=== PATIENT | male | born 1945 | race American Indian/Alaskan Native ===

== ENCOUNTER 2017-03-19 19:58 | Inpatient (IN) | payer MEDICARE, OTHER ==
--- NOTE | 2017-03-19 20:21 | C.PDOC ---
History Of Present Illness Patient sent to ED by their PCP for abnormal potassium levels. Denies fever, nausea, vomiting, palpitations, chest pain or SOB. Time Seen by Provider: 03/19/17 20:20 Chief Complaint (Nursing): Abnormal Labs History Per: Patient History/Exam Limitations: no limitations Onset/Duration Of Symptoms: Hrs Current Symptoms Are (Timing): Still Present Severity: None Pain Scale Rating Of: 0 Recent travel outside of the [place]: No Past Medical History Reviewed: Historical Data, Nursing Documentation, Vital Signs Vital Signs: Last Vital Signs Temp 98.7 F 03/19/17 20:04 Pulse 82 03/19/17 20:04 Resp 20 03/19/17 20:04 BP 95/56 L 03/19/17 20:04 Pulse Ox 100 03/19/17 20:55 - Medical History PMH: Alzheimer's Disease, Benign Prostatic Hyperplasia, Dementia, Gall Bladder Disease, HTN, Parkinson's Disease, Schizophrenia Surgical History: No Surg Hx Family History: States: No Known Family Hx - Social History Hx Alcohol Use: Yes Hx Substance Use: No - Immunization History Hx Tetanus Toxoid Vaccination: No Hx Influenza Vaccination: No Hx Pneumococcal Vaccination: No Review Of Systems Constitutional: Negative for: Fever, Chills Cardiovascular: Negative for: Chest Pain, Palpitations Respiratory: Negative for: Shortness of Breath Gastrointestinal: Negative for: Nausea, Vomiting, Diarrhea Genitourinary: Negative for: Dysuria Musculoskeletal: Negative for: Back Pain Skin: Negative for: Rash Neurological: Negative for: Weakness Psych: Negative for: Anxiety Physical Exam - Physical Exam Appears: Non-toxic, No Acute Distress, Other (Awake and alert) Skin: Warm, Dry Head: Normacephalic Eye(s): bilateral: Normal Inspection Oral Mucosa: Moist Neck: Supple Chest: Symmetrical, No Tenderness Cardiovascular: Rhythm Regular Respiratory: No Rales, No Rhonchi, No Wheezing Gastrointestinal/Abdominal: Soft, No Tenderness Back: Normal Inspection Extremity: Normal ROM Extremity: Bilateral: Atraumatic Pulses: Left Dorsalis Pedis: Normal, Right Dorsalis Pedis: Normal Neurological/Psych: Oriented x3 Gait: Steady ED Course And Treatment - Laboratory Results Result Diagrams: 03/19/17 20:38 03/19/17 20:38 ECG: Interpreted By Me, Viewed By Me ECG Rhythm: Sinus Rhythm (7676), ST/T Changes O2 Sat by Pulse Oximetry: 100 (Room air) Pulse Ox Interpretation: Normal Progress Note: Ordered EKG, blood work, and urinalysis. Disposition Discussed With Dr.: Naren Kennedy Comment: accepted the pt on his service and took over the care at 9:29PM Doctor Will See Patient In The: Hospital Counseled Patient/Family Regarding: Studies Performed, Diagnosis - Disposition Disposition: HOSPITALIZED Disposition Time: 20:21 Condition: GUARDED Forms: [facility] (Greek) - POA Present On Arrival: None - Clinical Impression Clinical Impression: Electrolyte imbalance, Hyperkalemia, Renal insufficiency - Scribe Statement The provider has reviewed the documentation as recorded by the Jazmynibe Fabio Kumar All medical record entries made by the Scribe were at my direction and personally dictated by me. I have reviewed the chart and agree that the record accurately reflects my personal performance of the history, physical exam, medical decision making, and the department course for this patient. I have also personally directed, reviewed, and agree with the discharge instructions and disposition. Decision To Admit - Pt Status Changed To: Hospital Disposition Of: Inpatient - Admit Certification Admit to Inpatient:: After my assessment, the patient will require hospitalization for at least two midnights. This is because of the severity of symptoms shown, intensity of services needed, and/or the medical risk in this patient being treated as an outpatient. - InPatient: Physician Admission Certification: I certify that this patient requires 2 or more midnights of care for the following reason:: After my assessment, the patient will require hospitalization for at least two midnights. This is because of the severity of symptoms shown, intensity of services needed, and/or the medical risk in this patient being treated as an outpatient. - . Bed Request Type: Telemetry Admitting Physician: Naren Kennedy Patient Diagnosis: Electrolyte imbalance, Hyperkalemia, Renal insufficiency
[2017-03-19 20:41] LABS: BASO % 0.5 % (0.0-2.0); EOS # 0.3 K/uL (0.0-0.7); EOS % 4.7 % (0.0-4.0); HEMOGLOBIN 10.1 g/dL (12.0-18.0); LYMPH # 1.3 K/uL (1.0-4.3); LYMPH % 21.9 % (20.0-40.0); MEAN CELL VOLUME 103.2 fL (80.0-94.0); MEAN CORPUSCULAR HEMOGLOBIN 33.5 pg (27.0-31.0); MEAN CORPUSCULAR HGB CONC 32.4 g/dL (33.0-37.0); MEAN PLATELET VOLUME 9.6 fL (7.2-11.7); MONO # 0.7 K/uL (0.0-0.8); MONO % 12.1 % (0.0-10.0); NEUT # 3.7 K/uL (1.8-7.0); NEUT % 60.8 % (50.0-75.0); NRBC % 0.1 % (0.0-2.0); RBC 3.02 Mil/uL (4.40-5.90); RED CELL DISTRIBUTION WIDTH 17.3 % (11.5-14.5)
[2017-03-19 20:50] LABS: PROTHROMBIN TIME 11.3 SECONDS (9.7-12.2)
[2017-03-19 21:10] LABS: ALB/GLOB RATIO 1.1 (1.0-2.1); ALBUMIN 3.5 g/dL (3.5-5.0); CALCIUM 8.5 mg/dl (8.6-10.4)
[2017-03-19] MEDS ORDERED: Calcium Gluconate 4.65 MEQ in Dextrose 5% In Water 100 ML IVPB STA (21:12)
[2017-03-19] MEDS ORDERED: Sod Polystyrene Sulf 15 gm/60 ml Susp PO STA (21:12)
[2017-03-19] MEDS ORDERED: Sodium Chloride 0.9% 1,000 ML IV ONE (21:13)
[2017-03-19] MEDS ORDERED: (Novolin R) Insulin Human Regular 100 units/ml vial SC ONE (21:14)
[2017-03-19] MEDS ORDERED: Dextrose 50% SYRINGE Inj (50 ml) IV STA (21:14)
[2017-03-19] MEDS: Albuterol-Ipratrop 3 mg / 0.5 (3 ml) UD IH SCH ×3 (21:15→21:45)
--- NOTE | 2017-03-20 09:02 | CP.PCM.CON ---
History of Present Illness - History of Present Illness History of Present Illness: Renal consult for PAUL, hyperkalemia, metabolic acidosis 72 yo AA male, known to Dr. Bonds in office, history of schizophrenia, HTN, hypertensive renal disease, HCV, presents with abnormal labs. Pt is a poor historian, has history of dementia.Has been on KENISHA-I. Describes some diarrhea. Denies change in u/o, appetite, sob. Receiving ivf. Baseline creatinine of 2.9. Lives in a correction. No fever or chills. Review of Systems - Review of Systems Systems not reviewed;Unavailable: Dementia Past Patient History - Infectious Disease Hx of Infectious Diseases: None - Past Medical History & Family History Past Medical History?: Yes - Past Social History Smoking Status: Light Smoker < 10 Cigarettes Daily - CARDIAC Hx Hypertension: Yes - NEUROLOGICAL Hx Alzheimer's Disease: Yes Hx Dementia: Yes Hx Parkinson's Disease: Yes - HEENT Hx HEENT Problems: No - RENAL Hx Chronic Kidney Disease: Yes Other/Comment: Renal insufficiency - ENDOCRINE/METABOLIC Hx Endocrine Disorders: No - HEMATOLOGICAL/ONCOLOGICAL Hx Blood Disorders: Yes Hx Hepatitis C: Yes - INTEGUMENTARY Hx Dermatological Problems: No - MUSCULOSKELETAL/RHEUMATOLOGICAL Hx Musculoskeletal Disorders: No Hx Falls: Yes - GASTROINTESTINAL Hx Gall Bladder Disease: Yes - GENITOURINARY/GYNECOLOGICAL Hx Genitourinary Disorders: No - PSYCHIATRIC Hx Schizophrenia: Yes Hx Substance Use: No - SURGICAL HISTORY Other/Comment: Bowel Resction - ANESTHESIA Hx Anesthesia: Yes Hx Anesthesia Reactions: No Meds Allergies/Adverse Reactions: Allergies Allergy/AdvReac Type Severity Reaction Status Date / Time No Known Allergies Allergy Verified 03/19/17 20:13 - Medications Medications: Current Medications Enoxaparin Sodium (Lovenox) 30 mg SC DAILY [facility] Sodium Bicarbonate 75 meq/ (Sodium Chloride) 1,075 mls @ 100 mls/hr IV .[id number] [place] Sodium Bicarbonate (Sodium Bicarbonate Tab) 1,300 mg PO TID [facility] Physical Exam - Constitutional Appears: Non-toxic, Chronically Ill - Head Exam Head Exam: ATRAUMATIC - Eye Exam Eye Exam: EOMI, Normal appearance - ENT Exam ENT Exam: Mucous Membranes Moist - Neck Exam Neck exam: Positive for: Full Rom. Negative for: Lymphadenopathy - Respiratory Exam Respiratory Exam: Clear to Auscultation Bilateral. absent: Accessory Muscle Use - Cardiovascular Exam Cardiovascular Exam: REGULAR RHYTHM. absent: Rubs - Extremities Exam Extremities exam: Negative for: pedal edema - Neurological Exam Neurological exam: Alert, Oriented x3 Additional comments: poor historian and poor insight - Psychiatric Exam Psychiatric exam: Flat Affect Results - Vital Signs Recent Vital Signs: Last Vital Signs Temp 98.2 F 03/20/17 07:00 Pulse 62 03/20/17 08:23 Resp 20 03/20/17 07:00 BP 100/58 L 03/20/17 07:00 Pulse Ox 100 03/20/17 07:00 - Labs Result Diagrams: 03/19/17 20:38 03/19/17 20:38 Labs: Laboratory Results - last 24 hr 03/19/17 03/19/17 03/19/17 20:38 20:38 20:38 WBC 6.0 RBC 3.02 L Hgb 10.1 L Hct 31.2 L MCV 103.2 H MCH 33.5 H MCHC 32.4 L RDW 17.3 H Plt Count 171 MPV 9.6 Neut % (Auto) 60.8 Lymph % (Auto) 21.9 [place] % (Auto) 12.1 H Eos % (Auto) 4.7 H Baso % (Auto) 0.5 Neut # 3.7 Lymph # 1.3 [place] # 0.7 Eos # 0.3 Baso # 0.0 PT 11.3 INR 1.0 APTT 27 Sodium 140 Potassium 6.1 H Chloride 125 H Carbon Dioxide 9 L* Anion Gap 13 BUN 49 H Creatinine 4.2 H Est GFR ( Amer) 17 Est GFR (Non-Af Amer) 14 Random Glucose 90 Calcium 8.5 L Total Bilirubin 0.5 AST 38 ALT 36 Alkaline Phosphatase 88 Total Protein 6.8 Albumin 3.5 Globulin 3.2 Albumin/Globulin Ratio 1.1 Assessment & Plan - Assessment and Plan (Free Text) Assessment: paul on ckd stage 4 nonanion gap metabolic acidosis hyperkalemia due to decreased renal mass and kenisha-i plan ivf with hco3 management of hyperkalemia renal diet renal us follow i/o hepatitis serologies continue outpatient medicines check cpk check urine anion gap
[2017-03-20] MEDS: QUEtiapine 200 mg XR Tab PO SCH (10:20)
[2017-03-20] MEDS: Enoxaparin 30 mg Syringe SC SCH (10:20)
[2017-03-20 11:28] LABS: SQUAMOUS EPITHIAL 1 /hpf (0-5); URINE BACTERIA RARE (<OCC); URINE BILIRUBIN NEGATIVE (NEGATIVE); URINE BLOOD 1+ (NEGATIVE); URINE CLARITY Clear (Clear); URINE COLOR Yellow (YELLOW); URINE GLUCOSE (UA) 1+ mg/dL (Normal); URINE LEUKOCYTE ESTERASE NEG Leu/uL (Negative); URINE NITRATE NEGATIVE (NEGATIVE); URINE PROTEIN NEGATIVE (NEGATIVE); URINE UROBILINOGEN NORMAL mg/dL (0.2-1.0)
[2017-03-20 12:03] LABS: ALB/GLOB RATIO 1.1 (1.0-2.1); ALBUMIN 2.9 g/dL (3.5-5.0)
--- NOTE | 2017-03-20 14:45 | US ---
PROCEDURE: Ultrasound of the Kidneys HISTORY: aguilar COMPARISON: None available. TECHNIQUE: Sonogram of the kidneys. FINDINGS: RIGHT KIDNEY: Measures: 11.1 x 5.5 x 4.2 cm. Lobulated renal contours. 0.7 x 0.9 x 0.7 cm midpole renal cyst. No obstructing calculus or hydronephrosis identified. LEFT KIDNEY: Measures: 11.8 x 6.2 x 5.8 cm. Lobulated renal contours. 2.8 x 3.0 x 2.7 cm septated upper pole renal cyst. No obstructing calculus or hydronephrosis identified. OTHER FINDINGS: The distention of the urinary bladder limits evaluation. IMPRESSION: Lobulated renal contours bilaterally. 3.0 cm septated cyst within the left upper pole kidney. 0.9 cm midpole right renal cyst. No obstructing calculus or hydronephrosis identified.
--- NOTE | 2017-03-20 20:00 | CP.PCM.HP ---
Past Patient History - Infectious Disease Hx of Infectious Diseases: None - Past Medical History & Family History Past Medical History?: Yes - Past Social History Smoking Status: Light Smoker < 10 Cigarettes Daily - CARDIAC Hx Hypertension: Yes - NEUROLOGICAL Hx Alzheimer's Disease: Yes Hx Dementia: Yes Hx Parkinson's Disease: Yes - HEENT Hx HEENT Problems: No - RENAL Hx Chronic Kidney Disease: Yes Other/Comment: Renal insufficiency - ENDOCRINE/METABOLIC Hx Endocrine Disorders: No - HEMATOLOGICAL/ONCOLOGICAL Hx Blood Disorders: Yes Hx Hepatitis C: Yes - INTEGUMENTARY Hx Dermatological Problems: No - MUSCULOSKELETAL/RHEUMATOLOGICAL Hx Musculoskeletal Disorders: No Hx Falls: Yes - GASTROINTESTINAL Hx Gall Bladder Disease: Yes - GENITOURINARY/GYNECOLOGICAL Hx Genitourinary Disorders: No - PSYCHIATRIC Hx Schizophrenia: Yes Hx Substance Use: No - SURGICAL HISTORY Other/Comment: Bowel Resction - ANESTHESIA Hx Anesthesia: Yes Hx Anesthesia Reactions: No Meds Allergies/Adverse Reactions: Allergies Allergy/AdvReac Type Severity Reaction Status Date / Time No Known Allergies Allergy Verified 03/19/17 20:13 Physical Exam - Constitutional Appears: Well - Head Exam Head Exam: ATRAUMATIC, NORMAL INSPECTION, NORMOCEPHALIC - Eye Exam Eye Exam: EOMI, Normal appearance, PERRL Pupil Exam: NORMAL ACCOMODATION, PERRL - ENT Exam ENT Exam: Mucous Membranes Moist, Normal Exam - Neck Exam Neck exam: Positive for: Normal Inspection - Respiratory Exam Respiratory Exam: Decreased Breath Sounds - Cardiovascular Exam Cardiovascular Exam: REGULAR RHYTHM, +S1, +S2 - GI/Abdominal Exam GI & Abdominal Exam: Diminished Bowel Sounds, Soft - Rectal Exam Rectal Exam: Deferred Results - Vital Signs Recent Vital Signs: Last Vital Signs Temp 97.7 F 03/20/17 15:25 Pulse 61 03/20/17 16:00 Resp 20 03/20/17 15:25 BP 94/51 L 03/20/17 15:25 Pulse Ox 100 03/20/17 15:25 - Labs Result Diagrams: 03/19/17 20:38 03/20/17 11:25 Labs: Laboratory Results - last 24 hr 03/19/17 03/19/17 03/19/17 20:38 20:38 20:38 WBC 6.0 RBC 3.02 L Hgb 10.1 L Hct 31.2 L MCV 103.2 H MCH 33.5 H MCHC 32.4 L RDW 17.3 H Plt Count 171 MPV 9.6 Neut % (Auto) 60.8 Lymph % (Auto) 21.9 [place] % (Auto) 12.1 H Eos % (Auto) 4.7 H Baso % (Auto) 0.5 Neut # 3.7 Lymph # 1.3 [place] # 0.7 Eos # 0.3 Baso # 0.0 PT 11.3 INR 1.0 APTT 27 Sodium 140 Potassium 6.1 H Chloride 125 H Carbon Dioxide 9 L* Anion Gap 13 BUN 49 H Creatinine 4.2 H Est GFR ( Amer) 17 Est GFR (Non-Af Amer) 14 Random Glucose 90 Calcium 8.5 L Total Bilirubin 0.5 AST 38 ALT 36 Alkaline Phosphatase 88 Total Protein 6.8 Albumin 3.5 Globulin 3.2 Albumin/Globulin Ratio 1.1 Urine Color Urine Clarity Urine pH Ur Specific [place] Urine Protein Urine Glucose (UA) Urine Ketones Urine Blood Urine Nitrate Urine Bilirubin Urine Urobilinogen Ur Leukocyte Esterase Urine WBC (Auto) Urine RBC (Auto) Ur Squamous Epith Cells Urine Bacteria Hyaline Casts 03/20/17 03/20/17 11:19 11:25 WBC RBC Hgb Hct MCV MCH MCHC RDW Plt Count MPV Neut % (Auto) Lymph % (Auto) [place] % (Auto) Eos % (Auto) Baso % (Auto) Neut # Lymph # [place] # Eos # Baso # PT INR APTT Sodium 138 Potassium 5.3 H Chloride 122 H Carbon Dioxide 13 L Anion Gap 9 L BUN 36 H Creatinine 3.3 H Est GFR ( Amer) 22 Est GFR (Non-Af Amer) 19 Random Glucose 108 Calcium 8.0 L Total Bilirubin 0.2 AST 36 ALT 49 Alkaline Phosphatase 63 Total Protein 5.6 L Albumin 2.9 L Globulin 2.7 Albumin/Globulin Ratio 1.1 Urine Color Yellow Urine Clarity Clear Urine pH 5.0 Ur Specific [place] 1.011 Urine Protein Negative Urine Glucose (UA) 1+ H Urine Ketones Negative Urine Blood 1+ H Urine Nitrate Negative Urine Bilirubin Negative Urine Urobilinogen Normal Ur Leukocyte Esterase Neg Urine WBC (Auto) 1 Urine RBC (Auto) 8 H Ur Squamous Epith Cells 1 Urine Bacteria Rare Hyaline Casts 6-10 H
[2017-03-21 06:37] LABS: BASO % 0.7 % (0.0-2.0); EOS # 0.2 K/uL (0.0-0.7); EOS % 5.2 % (0.0-4.0); HEMOGLOBIN 8.9 g/dL (12.0-18.0); LYMPH # 0.9 K/uL (1.0-4.3); LYMPH % 24.4 % (20.0-40.0); MEAN CELL VOLUME 100.3 fL (80.0-94.0); MEAN CORPUSCULAR HGB CONC 32.8 g/dL (33.0-37.0); MEAN PLATELET VOLUME 9.7 fL (7.2-11.7); MONO # 0.5 K/uL (0.0-0.8); MONO % 14.5 % (0.0-10.0); NEUT # 2.1 K/uL (1.8-7.0); NEUT % 55.2 % (50.0-75.0); NRBC % 0.2 % (0.0-2.0); RBC 2.71 Mil/uL (4.40-5.90); RED CELL DISTRIBUTION WIDTH 16.2 % (11.5-14.5); WHITE BLOOD COUNT 3.7 K/uL (4.8-10.8)
[2017-03-21 08:05] LABS: ALBUMIN 2.8 g/dL (3.5-5.0); CALCIUM 7.7 mg/dl (8.6-10.4)
[2017-03-21] MEDS: QUEtiapine 200 mg XR Tab PO SCH (09:14)
[2017-03-21] MEDS: Enoxaparin 30 mg Syringe SC SCH (09:15)
[2017-03-21] MEDS ORDERED: Influenza Vaccine 60 mcg/0.5 mL SYR (4YR UP) IM ONE (10:00)
[2017-03-21] MEDS ORDERED: Pneumococcal 23-Valent Vaccine IM ONE (10:00)
--- NOTE | 2017-03-21 10:18 | CP.PCM.PN ---
Subjective - Date & Time of Evaluation Date of Evaluation: 03/21/17 Time of Evaluation: 10:15 - Subjective Subjective: More alert On IV bicarb and oral as well BP improved Creat decreased to 2.9; acidosis being corrected No more SOB. No CPs, HAs, fever, chills, diarrhea No new complaint Objective - Vital Signs/Intake and Output Vital Signs (last 24 hours): Temp Pulse Resp BP Pulse Ox 98.1 F 57 L 20 147/81 100 03/21/17 08:03 03/21/17 08:03 03/21/17 08:03 03/21/17 08:03 03/21/17 08:03 Intake and Output: 03/21/17 03/21/17 06:59 18:59 Intake Total 920 Balance 920 - Medications Medications: Current Medications Clopidogrel Bisulfate (Plavix) 75 mg PO DAILY [facility] Last Admin: 03/21/17 09:13 Dose: 75 mg Enoxaparin Sodium (Lovenox) 30 mg SC DAILY [facility] Last Admin: 03/21/17 09:15 Dose: 30 mg Sodium Bicarbonate 75 meq/ (Sodium Chloride) 1,075 mls @ 100 mls/hr IV .[id number] [facility] Last Admin: 03/21/17 01:10 Dose: 100 mls/hr Quetiapine Fumarate (Seroquel Xr) 200 mg PO DAILY [facility] Last Admin: 03/21/17 09:14 Dose: 200 mg Sodium Bicarbonate (Sodium Bicarbonate Tab) 1,300 mg PO TID [facility] Last Admin: 03/21/17 09:13 Dose: 1,300 mg - Labs Labs: 03/21/17 06:30 03/21/17 06:30 PT 11.3 SECONDS (9.7-12.2) 03/19/17 20:38 INR 1.0 03/19/17 20:38 APTT 27 SECONDS (21-34) 03/19/17 20:38 - Constitutional Appears: Confused, Chronically Ill - Head Exam Head Exam: ATRAUMATIC, NORMAL INSPECTION - Eye Exam Eye Exam: EOMI, Normal appearance - Neck Exam Neck Exam: Normal Inspection. absent: Tenderness - Respiratory Exam Respiratory Exam: Clear to Ausculation Bilateral, NORMAL BREATHING PATTERN - Cardiovascular Exam Cardiovascular Exam: REGULAR RHYTHM, +S1 - GI/Abdominal Exam GI & Abdominal Exam: Soft. absent: Tenderness - Extremities Exam Extremities Exam: Normal Inspection. absent: Tenderness - Neurological Exam Neurological Exam: Alert, CN II-XII Intact - Skin Skin Exam: Warm. absent: Dry Assessment and Plan (1) PAUL (acute kidney injury) Status: Acute (2) Hypotension Status: Acute (3) Hyperkalemia Status: Acute - Assessment and Plan (Free Text) Plan: Continue IV fluids, bicarb Monitor BP follow up chemistries
[2017-03-21] MEDS ORDERED: Sod Polystyrene Sulf 15 gm/60 ml Susp PO ONE ×2 (10:19→22:56)
--- NOTE | 2017-03-21 12:50 | CARD ---
APPROVED REPORT EKG Measurement Heart [id number] <Conclusion> Sinus bradycardia with sinus arrhythmia Normal Electrocardiogram
--- NOTE | 2017-03-21 19:23 | CP.PCM.PN ---
Subjective - Date & Time of Evaluation Date of Evaluation: 03/21/17 Time of Evaluation: 11:40 - Subjective Subjective: clinically same Objective - Vital Signs/Intake and Output Vital Signs (last 24 hours): Temp Pulse Resp BP Pulse Ox 97.7 F 72 20 100/54 L 100 03/21/17 15:40 03/21/17 15:40 03/21/17 15:40 03/21/17 15:40 03/21/17 15:40 Intake and Output: 03/21/17 03/22/17 18:59 06:59 Intake Total 1040 Balance 1040 - Medications Medications: Current Medications Clopidogrel Bisulfate (Plavix) 75 mg PO DAILY [facility] Last Admin: 03/21/17 09:13 Dose: 75 mg Enoxaparin Sodium (Lovenox) 30 mg SC DAILY [facility] Last Admin: 03/21/17 09:15 Dose: 30 mg Sodium Bicarbonate 75 meq/ (Sodium Chloride) 1,075 mls @ 100 mls/hr IV .[id number] [facility] Last Admin: 03/21/17 17:41 Dose: 100 mls/hr Quetiapine Fumarate (Seroquel Xr) 200 mg PO DAILY [facility] Last Admin: 03/21/17 09:14 Dose: 200 mg Sodium Bicarbonate (Sodium Bicarbonate Tab) 1,300 mg PO TID [facility] Last Admin: 03/21/17 17:41 Dose: 1,300 mg - Labs Labs: 03/21/17 06:30 03/21/17 06:30 PT 11.3 SECONDS (9.7-12.2) 03/19/17 20:38 INR 1.0 03/19/17 20:38 APTT 27 SECONDS (21-34) 03/19/17 20:38
[2017-03-22] MEDS ORDERED: Sod Polystyrene Sulf 15 gm/60 ml Susp PO ONE (00:05)
[2017-03-22 08:35] LABS: MEAN CELL VOLUME 98.6 fL (80.0-94.0); MEAN CORPUSCULAR HEMOGLOBIN 32.8 pg (27.0-31.0); MEAN CORPUSCULAR HGB CONC 33.3 g/dL (33.0-37.0); RBC 2.75 Mil/uL (4.40-5.90); RED CELL DISTRIBUTION WIDTH 15.9 % (11.5-14.5); WHITE BLOOD COUNT 4.3 K/uL (4.8-10.8)
[2017-03-22 08:46] LABS: ALB/GLOB RATIO 1.2 (1.0-2.1); ALBUMIN 3.1 g/dL (3.5-5.0); CALCIUM 7.8 mg/dl (8.6-10.4); MAGNESIUM 1.5 mg/dL (1.6-2.3)
[2017-03-22] MEDS: Enoxaparin 30 mg Syringe SC SCH (09:51)
[2017-03-22] MEDS: QUEtiapine 200 mg XR Tab PO SCH (09:52)
--- NOTE | 2017-03-22 13:47 | CP.PCM.PN ---
Subjective - Date & Time of Evaluation Date of Evaluation: 03/22/17 Time of Evaluation: 13:44 - Subjective Subjective: Alert; eating better Remains on IV fluids Creat decreased to 2.6 Acidosis corrected No other complaint Objective - Vital Signs/Intake and Output Vital Signs (last 24 hours): Temp Pulse Resp BP Pulse Ox 98.9 F 73 20 139/81 98 03/22/17 07:00 03/22/17 07:00 03/22/17 07:00 03/22/17 07:00 03/22/17 07:00 Intake and Output: 03/22/17 03/22/17 06:59 18:59 Intake Total 1040 Balance 1040 - Medications Medications: Current Medications Clopidogrel Bisulfate (Plavix) 75 mg PO DAILY [facility] Last Admin: 03/22/17 09:52 Dose: 75 mg Enoxaparin Sodium (Lovenox) 30 mg SC DAILY [facility] Last Admin: 03/22/17 09:51 Dose: 30 mg Magnesium Oxide (Mag-Ox) 400 mg PO DAILY [facility] Quetiapine Fumarate (Seroquel Xr) 200 mg PO DAILY [facility] Last Admin: 03/22/17 09:52 Dose: 200 mg Sodium Bicarbonate (Sodium Bicarbonate Tab) 1,300 mg PO TID [facility] Last Admin: 03/22/17 13:10 Dose: 1,300 mg - Labs Labs: 03/22/17 08:19 03/22/17 08:19 PT 11.3 SECONDS (9.7-12.2) 03/19/17 20:38 INR 1.0 03/19/17 20:38 APTT 27 SECONDS (21-34) 03/19/17 20:38 - Constitutional Appears: No Acute Distress, Chronically Ill - Head Exam Head Exam: ATRAUMATIC, NORMAL INSPECTION - Eye Exam Eye Exam: EOMI, Normal appearance - Neck Exam Neck Exam: Normal Inspection. absent: Tenderness - Respiratory Exam Respiratory Exam: Clear to Ausculation Bilateral, NORMAL BREATHING PATTERN - Cardiovascular Exam Cardiovascular Exam: REGULAR RHYTHM, +S1 - GI/Abdominal Exam GI & Abdominal Exam: Soft. absent: Tenderness - Extremities Exam Extremities Exam: Normal Inspection. absent: Tenderness - Neurological Exam Neurological Exam: Awake, CN II-XII Intact - Skin Skin Exam: Dry, Warm Assessment and Plan (1) PAUL (acute kidney injury) Status: Acute (2) Hypotension Status: Acute (3) Hyperkalemia Status: Resolved - Assessment and Plan (Free Text) Plan: Stop bicarb gtt- continue oral bicarb Replete mag f/u labs Add ESAs
[2017-03-22] MEDS: Magnesium Oxide 400 mg Tab UD PO SCH (14:00)
--- NOTE | 2017-03-22 19:39 | CP.PCM.PN ---
Subjective - Date & Time of Evaluation Date of Evaluation: 03/22/17 Time of Evaluation: 12:00 - Subjective Subjective: clinically same Objective - Vital Signs/Intake and Output Vital Signs (last 24 hours): Temp Pulse Resp BP Pulse Ox 97.5 F L 64 20 88/42 L 98 03/22/17 15:00 03/22/17 15:00 03/22/17 15:00 03/22/17 15:00 03/22/17 15:00 Intake and Output: 03/22/17 03/23/17 18:59 06:59 Intake Total 880 Balance 880 - Medications Medications: Current Medications Clopidogrel Bisulfate (Plavix) 75 mg PO DAILY [facility] Last Admin: 03/22/17 09:52 Dose: 75 mg Enoxaparin Sodium (Lovenox) 30 mg SC DAILY [facility] Last Admin: 03/22/17 09:51 Dose: 30 mg Epoetin Mg (Procrit) 10,000 unit SC [facility] Magnesium Oxide (Mag-Ox) 400 mg PO DAILY [facility] Last Admin: 03/22/17 14:00 Dose: 400 mg Quetiapine Fumarate (Seroquel Xr) 200 mg PO DAILY [facility] Last Admin: 03/22/17 09:52 Dose: 200 mg Sodium Bicarbonate (Sodium Bicarbonate Tab) 1,300 mg PO TID [facility] Last Admin: 03/22/17 18:45 Dose: 1,300 mg - Labs Labs: 03/22/17 08:19 03/22/17 08:19 PT 11.3 SECONDS (9.7-12.2) 03/19/17 20:38 INR 1.0 03/19/17 20:38 APTT 27 SECONDS (21-34) 03/19/17 20:38
[2017-03-23] MEDS: Magnesium Oxide 400 mg Tab UD PO SCH (09:25)
[2017-03-23] MEDS: Enoxaparin 30 mg Syringe SC SCH (09:25)
[2017-03-23] MEDS: QUEtiapine 200 mg XR Tab PO SCH (09:25)
[2017-03-23 09:33] VITALS: O2SAT 98
--- NOTE | 2017-03-23 11:09 | CP.PCM.PN ---
Subjective - Date & Time of Evaluation Date of Evaluation: 03/23/17 Time of Evaluation: 11:04 - Subjective Subjective: pt seen and examined feels well afebrile no SOB no other complaints wants to speak with rn social services ROS- as per HPI, other than that 10 point RO S negative Objective - Vital Signs/Intake and Output Vital Signs (last 24 hours): Temp Pulse Resp BP Pulse Ox 98.3 F 51 L 20 109/65 98 03/23/17 07:00 03/23/17 08:00 03/23/17 07:00 03/23/17 07:00 03/23/17 07:00 Intake and Output: 03/23/17 03/23/17 06:59 18:59 Intake Total 600 Balance 600 - Medications Medications: Current Medications Clopidogrel Bisulfate (Plavix) 75 mg PO DAILY [facility] Last Admin: 03/23/17 09:25 Dose: 75 mg Enoxaparin Sodium (Lovenox) 30 mg SC DAILY [facility] Last Admin: 03/23/17 09:25 Dose: 30 mg Epoetin Mg (Procrit) 10,000 unit SC [facility] Magnesium Oxide (Mag-Ox) 400 mg PO DAILY [facility] Last Admin: 03/23/17 09:25 Dose: 400 mg Quetiapine Fumarate (Seroquel Xr) 200 mg PO DAILY [facility] Last Admin: 03/23/17 09:25 Dose: 200 mg Sodium Bicarbonate (Sodium Bicarbonate Tab) 1,300 mg PO TID [facility] Last Admin: 03/23/17 09:25 Dose: 1,300 mg - Labs Labs: 03/22/17 08:19 03/22/17 08:19 PT 11.3 SECONDS (9.7-12.2) 03/19/17 20:38 INR 1.0 03/19/17 20:38 APTT 27 SECONDS (21-34) 03/19/17 20:38 - Constitutional Appears: Well, Non-toxic - Head Exam Head Exam: ATRAUMATIC, NORMOCEPHALIC - Eye Exam Eye Exam: EOMI, Normal appearance - ENT Exam ENT Exam: Mucous Membranes Moist - Respiratory Exam Respiratory Exam: Clear to Ausculation Bilateral. absent: Rhonchi, Wheezes - Cardiovascular Exam Cardiovascular Exam: REGULAR RHYTHM, +S1, +S2 - GI/Abdominal Exam GI & Abdominal Exam: absent: Tenderness - Extremities Exam Extremities Exam: Full ROM. absent: Pedal Edema - Neurological Exam Neurological Exam: Alert, Awake, Oriented x3 - Psychiatric Exam Psychiatric exam: Normal Affect, Normal Mood - Skin Skin Exam: Normal Color, Warm Assessment and Plan (1) PAUL (acute kidney injury) Status: Acute (2) Electrolyte imbalance Status: Acute (3) Renal insufficiency Status: Acute (4) Hyperkalemia Status: Resolved - Assessment and Plan (Free Text) Plan: Cr down to 2.6 yesterday no new labs today check labs monitor BP off iv fluids
--- NOTE | 2017-03-23 15:11 | CP.PCM.PN ---
Subjective - Date & Time of Evaluation Date of Evaluation: 03/23/17 Time of Evaluation: 11:00 - Subjective Subjective: clinically same Objective - Vital Signs/Intake and Output Vital Signs (last 24 hours): Temp Pulse Resp BP Pulse Ox 98.3 F 51 L 20 109/65 98 03/23/17 07:00 03/23/17 08:00 03/23/17 07:00 03/23/17 07:00 03/23/17 07:00 Intake and Output: 03/23/17 03/23/17 06:59 18:59 Intake Total 600 Balance 600 - Medications Medications: Current Medications Clopidogrel Bisulfate (Plavix) 75 mg PO DAILY [facility] Last Admin: 03/23/17 09:25 Dose: 75 mg Enoxaparin Sodium (Lovenox) 30 mg SC DAILY [facility] Last Admin: 03/23/17 09:25 Dose: 30 mg Epoetin Mg (Procrit) 10,000 unit SC F [facility] Magnesium Oxide (Mag-Ox) 400 mg PO DAILY [facility] Last Admin: 03/23/17 09:25 Dose: 400 mg Quetiapine Fumarate (Seroquel Xr) 200 mg PO DAILY [facility] Last Admin: 03/23/17 09:25 Dose: 200 mg Sodium Bicarbonate (Sodium Bicarbonate Tab) 1,300 mg PO TID [facility] Last Admin: 03/23/17 13:35 Dose: 1,300 mg - Labs Labs: 03/22/17 08:19 03/22/17 08:19 PT 11.3 SECONDS (9.7-12.2) 03/19/17 20:38 INR 1.0 03/19/17 20:38 APTT 27 SECONDS (21-34) 03/19/17 20:38
[2017-03-23 16:00] VITALS: BP 92/54; PULSE 70; RESP 18; TEMP 98
--- NOTE | 2017-03-23 16:13 | CP.PCM.PN ---
Subjective - Date & Time of Evaluation Date of Evaluation: 03/23/17 Time of Evaluation: 16:12 - Subjective Subjective: SEEN BY DR REY AND CLEARED FOR D/C HOME TODAY. RX GIVEN FOR SOD BICARB AND MAG OXIDE. TO F/U WITH DR REY AND RENAL IN THE OFFICE IN 1 WEEK. NO FURTHER ORDERS. Objective - Vital Signs/Intake and Output Vital Signs (last 24 hours): Temp Pulse Resp BP Pulse Ox 98.0 F 70 18 92/54 L 98 03/23/17 15:58 03/23/17 15:58 03/23/17 15:58 03/23/17 15:58 03/23/17 15:58 Intake and Output: 03/23/17 03/23/17 06:59 18:59 Intake Total 600 Balance 600 - Medications Medications: Current Medications Clopidogrel Bisulfate (Plavix) 75 mg PO DAILY [facility] Last Admin: 03/23/17 09:25 Dose: 75 mg Enoxaparin Sodium (Lovenox) 30 mg SC DAILY [facility] Last Admin: 03/23/17 09:25 Dose: 30 mg Epoetin Mg (Procrit) 10,000 unit [place] [facility] [place] Magnesium Oxide (Mag-Ox) 400 mg PO DAILY [facility] Last Admin: 03/23/17 09:25 Dose: 400 mg Quetiapine Fumarate (Seroquel Xr) 200 mg PO DAILY [facility] Last Admin: 03/23/17 09:25 Dose: 200 mg Sodium Bicarbonate (Sodium Bicarbonate Tab) 1,300 mg PO TID [facility] Last Admin: 03/23/17 13:35 Dose: 1,300 mg - Labs Labs: 03/22/17 08:19 03/22/17 08:19 PT 11.3 SECONDS (9.7-12.2) 03/19/17 20:38 INR 1.0 03/19/17 20:38 APTT 27 SECONDS (21-34) 03/19/17 20:38
[2017-03-25] MEDS ORDERED: EPOETIN ALFA 10,000 UNIT/ML ML SC SCH (09:00)
== END 2017-03-23 17:00 | disposition home or self-care (01) | DRG 683 ==
LOC: C.ER 19:58 → C.6T 21:25
PROVIDERS: ADMIT Internal Medicine Nephrology; ATTEND Internal Medicine Nephrology
DX: N17.9 Acute kidney failure, unspecified (principal); E87.2 Acidosis; I95.9 Hypotension, unspecified; E87.5 Hyperkalemia; G20 Parkinson's disease; G30.9 Alzheimer's disease, unspecified; F02.80 Dementia in other diseases classified elsewhere, unspecified severity, without behavioral disturbance, psychotic disturbance, mood disturbance, and anxiety; I12.9 Hypertensive chronic kidney disease with stage 1 through stage 4 chronic kidney disease, or unspecified chronic kidney disease; B19.20 Unspecified viral hepatitis C without hepatic coma; F17.210 Nicotine dependence, cigarettes, uncomplicated; N40.0 Benign prostatic hyperplasia without lower urinary tract symptoms; N18.4 Chronic kidney disease, stage 4 (severe); N28.89 Other specified disorders of kidney and ureter

== ENCOUNTER 2017-04-11 07:00 | Inpatient (IN) | payer MEDICARE, OTHER ==
--- NOTE | 2017-04-11 07:06 | C.PDOC ---
History Of Present Illness 72M biba after reported syncopal episode at the retirement where he lives. per mes pt has baseline confusion. pt says he was feeling "a little dizzy" and "my knees got weak" and is unsure but believes he did pass out. he denies any injury , pain, sob, chest pain, headache. Time Seen by Provider: 04/11/17 07:03 Chief Complaint (Nursing): Syncope Past Medical History Vital Signs: Last Vital Signs Temp 98.1 F 04/11/17 09:10 Pulse 54 L 04/11/17 08:11 Resp 15 04/11/17 08:11 BP 119/64 04/11/17 08:11 Pulse Ox 100 04/11/17 08:11 - Medical History PMH: Alzheimer's Disease, Benign Prostatic Hyperplasia, Dementia, Gall Bladder Disease, HTN, Parkinson's Disease, Chronic Kidney Disease, Schizophrenia Family History: States: Unknown Family Hx - Social History Hx Alcohol Use: No Hx Substance Use: No - Immunization History Hx Tetanus Toxoid Vaccination: No Hx Influenza Vaccination: No Hx Pneumococcal Vaccination: No Review Of Systems Except As Marked, All Systems Reviewed And Found Negative. Constitutional: Negative for: Fever, Chills, Malaise Cardiovascular: Negative for: Chest Pain Respiratory: Negative for: Cough, Shortness of Breath Gastrointestinal: Negative for: Nausea, Vomiting, Abdominal Pain Musculoskeletal: Negative for: Neck Pain Neurological: Negative for: Weakness, Numbness, Headache Physical Exam - Physical Exam Appears: Well, Non-toxic, No Acute Distress Skin: Warm, Dry Head: Atraumatic Eye(s): bilateral: PERRL, EOMI Nose: No Epistaxis Oral Mucosa: Moist Lips: No Swelling Neck: Normal ROM Cardiovascular: Rhythm Regular Respiratory: No Decreased Breath Sounds, No Accessory Muscle Use, No Rales, No Rhonchi, No Wheezing Gastrointestinal/Abdominal: Soft, No Tenderness, No Distention Extremity: No Deformity, No Swelling Pulses: Left Radial: Normal, Right Radial: Normal, Left Dorsalis Pedis: Normal, Right Dorsalis Pedis: Normal Neurological/Psych: Oriented x3, Normal Motor, Normal Sensation, Other (no focal deficits) ED Course And Treatment - Laboratory Results Result Diagrams: 04/11/17 07:25 04/11/17 07:25 - Radiology CXR: Viewed By Me, Read By Radiologist CXR Interpretation: Yes: No Acute Disease. No: Pnemothorax Medical Decision Making Medical Decision Making: ecg- sinus floyd 54, ivcd, no acute ischemia Disposition - Disposition Disposition: HOSPITALIZED Disposition Time: 08:33 Condition: STABLE - Clinical Impression Clinical Impression: Syncope
[2017-04-11 07:33] LABS: BASO % 0.5 % (0.0-2.0); EOS # 0.2 K/uL (0.0-0.7); EOS % 4.1 % (0.0-4.0); LYMPH # 1.8 K/uL (1.0-4.3); LYMPH % 42.2 % (20.0-40.0); MEAN CELL VOLUME 98.6 fL (80.0-94.0); MEAN CORPUSCULAR HEMOGLOBIN 32.3 pg (27.0-31.0); MEAN CORPUSCULAR HGB CONC 32.7 g/dL (33.0-37.0); MEAN PLATELET VOLUME 9.1 fL (7.2-11.7); MONO # 0.4 K/uL (0.0-0.8); MONO % 8.9 % (0.0-10.0); NEUT # 1.9 K/uL (1.8-7.0); NEUT % 44.3 % (50.0-75.0); NRBC % 0.1 % (0.0-2.0); RBC 3.4 Mil/uL (4.40-5.90); RED CELL DISTRIBUTION WIDTH 15.4 % (11.5-14.5); WHITE BLOOD COUNT 4.4 K/uL (4.8-10.8)
[2017-04-11 08:04] LABS: ALB/GLOB RATIO 1.2 (1.0-2.1); ALBUMIN 3.9 g/dL (3.5-5.0); ALT/SGPT 37 U/L (21-72); AST/SGOT 36 U/L (17-59); BLOOD UREA NITROGEN 24 mg/dL (9-20); CALCIUM 8.8 mg/dl (8.6-10.4); GFR AFRICAN-AMERICAN 26; GFR NON-AFRICAN AMERICAN 22
--- NOTE | 2017-04-11 08:21 | CT ---
PROCEDURE: CT HEAD WITHOUT CONTRAST. HISTORY: syncope fall COMPARISON: None available. TECHNIQUE: Axial computed tomography images were obtained through the head/brain without intravenous contrast. Radiation dose: Total exam DLP = 1022 mGy-cm. This CT exam was performed using one or more of the following dose reduction techniques: Automated exposure control, adjustment of the mA and/or kV according to patient size, and/or use of iterative reconstruction technique. FINDINGS: HEMORRHAGE: No intracranial hemorrhage. BRAIN: No mass effect or edema. There is cerebral atrophy -bifrontal most notable. Tiny bilateral basal ganglionic lacunar infarcts in bilateral basal ganglion calcifications present VENTRICLES: Unremarkable. No hydrocephalus. CALVARIUM: Unremarkable. PARANASAL SINUSES: Unremarkable as visualized. No significant inflammatory changes. MASTOID AIR CELLS: Unremarkable as visualized. No inflammatory changes. OTHER FINDINGS: None. IMPRESSION: No intracranial hemorrhage or mass effect. Atrophy and tiny basal ganglionic lacunes.
--- NOTE | 2017-04-11 09:11 | RAD ---
HISTORY: syncope COMPARISON: 11/01/1999 FINDINGS: LUNGS: No active pulmonary disease. PLEURA: No significant pleural effusion identified, no pneumothorax apparent. CARDIOVASCULAR: Normal. OSSEOUS STRUCTURES: Thoracic spondylosis. Anomalous development- benign osseous growth inferior lateral clavicle towards coronoid process VISUALIZED UPPER ABDOMEN: Normal. OTHER FINDINGS: None. IMPRESSION: No active disease.
[2017-04-11 09:30] LABS: URINE BACTERIA RARE (<OCC); URINE BILIRUBIN NEGATIVE (NEGATIVE); URINE BLOOD NEGATIVE (NEGATIVE); URINE CLARITY Clear (Clear); URINE COLOR Yellow (YELLOW); URINE GLUCOSE (UA) NORMAL (Normal); URINE LEUKOCYTE ESTERASE NEG Leu/uL (Negative); URINE NITRATE NEGATIVE (NEGATIVE); URINE PROTEIN NEGATIVE (NEGATIVE); URINE UROBILINOGEN NORMAL mg/dL (0.2-1.0)
[2017-04-12 01:36] LABS: MEAN CELL VOLUME 97.3 fL (80.0-94.0); MEAN CORPUSCULAR HEMOGLOBIN 32.2 pg (27.0-31.0); MEAN CORPUSCULAR HGB CONC 33.1 g/dL (33.0-37.0); MEAN PLATELET VOLUME 9.3 fL (7.2-11.7); RBC 3.11 Mil/uL (4.40-5.90); RED CELL DISTRIBUTION WIDTH 15.3 % (11.5-14.5); WHITE BLOOD COUNT 6.6 K/uL (4.8-10.8)
[2017-04-12 02:02] LABS: IRON 26 ug/dL (49-181)
[2017-04-12 02:14] LABS: TOTAL IRON BINDING CAPACITY 244 ug/dL (250-450)
[2017-04-12 02:18] LABS: % IRON SATURATION 11 (20-55)
[2017-04-12 03:08] LABS: FOLATE 5.7 ng/mL
[2017-04-12 08:09] LABS: CALCIUM 8.2 mg/dl (8.6-10.4)
--- NOTE | 2017-04-12 10:51 | HP ---
CHIEF COMPLAINT: Feeling dizzy. HISTORY OF PRESENT ILLNESS: Mr. Prashant Myrick is 72-year-old male, very poor historian, reported that he had syncopal attack at a halfway where he lives. According to halfway people, the patient's baseline is confuse . The patient said he was feeling a little dizzy and got wheeze and is not sure about his passing out. He denies any injury. Denies shortness of breath, chest pain, nausea, vomiting, diarrhea, fever or chills. PAST MEDICAL HISTORY: Dementia, BPH, gallbladder disease, hypertension, Parkinson disease, chronic kidney disease, schizophrenia. FAMILY HISTORY: Unknown. HABITS: No smoking. No drugs. No ethanol. ALLERGIES: THE PATIENT IS NOT ALLERGIC WITH ANY MEDICATIONS. REVIEW OF SYSTEMS: The patient seen and examined at the bedside. The patient is very poor historian. At the time of interview, no nausea, vomiting or diarrhea; no fever, no chills, no malaise, no chest pain, no coughing, no shortness of breath, no neck pain. A 12-point review of systems was negative except above. PHYSICAL EXAMINATION: VITAL SIGNS: Temperature 98.1, pulse 54, respiratory rate 15, blood pressure 120/80 HEENT: Head is normocephalic and atraumatic. Eyes: PERRLA. Extraocular muscles intact. Conjunctivae clear. Nose patent. Mucous membranes are moist. NECK: Supple. No carotid bruit. No thyromegaly. CHEST: Bilaterally symmetrical. HEART: S1 and S2 positive. LUNGS: Clear to auscultation. ABDOMEN: Soft. Bowel sounds present. No organomegaly. EXTREMITIES: No edema. No cyanosis. NEUROLOGIC: The patient is awake and alert. Moving all four extremities. No focal deficits. LABORATORY DATA: White blood cells 12.4, hemoglobin 11.0, hematocrit 33.5, platelets 182,000. Sodium 139, potassium 4.9, BUN 24, creatinine 2.9, glucose 98. ASSESSMENT AND PLAN: Mr. Prashant Myrick is 72-year-old male with leukopenia, anemia, renal insufficiency came with syncopal attack, fatigue. Electroencephalogram done, shows sinus bradycardia, no acute ischemia. The patient has history of dementia, benign prostatic hyperplasia, hypercholesterolemia, gallbladder disease, Parkinson disease, chronic kidney disease, schizophrenia. We admitted the patient. Consulted by Dr. Maico Damon, neurologist; aspirin given. We will restart the patient's old medication and gastrointestinal and deep venous thrombosis prophylaxis. Repeat labs. We will follow up. Laura Taylor MD ALIN
--- NOTE | 2017-04-12 11:19 | CARD ---
APPROVED REPORT EKG Measurement Heart [id number] <Conclusion> Sinus bradycardia RSR' or QR pattern in V1 suggests right ventricular conduction delay Borderline ECG
--- NOTE | 2017-04-12 12:33 | CON ---
DATE: NEUROLOGIC CONSULTATION REASON FOR CONSULTATION: Episode of passing out. HISTORY OF PRESENT ILLNESS: The patient is a 72-year-old male who is here for evaluation for episode of passing out. The patient apparently lives in a residential where he apparent felt dizzy and he said his knees gave out and he passed out. He was not sure how long he was unconscious; however, he said it was very brief period. He did not have any urinary incontinence or tongue biting. The patient lives in a ground home and has baseline confusion. PAST MEDICAL HISTORY: Includes hypertension, dementia, benign prostatic hyperplasia and gallbladder disease, Parkinson's disease, chronic kidney disease and schizophrenia. MEDICATIONS AT HOME: Included ferrous sulfate, Plavix, cholecalciferol, Seroquel, Namenda and magnesium oxide. ALLERGIES: NO KNOWN DRUG ALLERGIES. FAMILY HISTORY: Noncontributory to the case. SOCIAL HISTORY: He lives in a residential. Denies alcohol use or illicit drugs. He does smoke cigarettes. REVIEW OF SYSTEMS: Denies any headache, dizziness, chest pain, shortness of breath, abdominal pain, constipation, diarrhea, dysuria, cough, sputum production. PHYSICAL EXAMINATION: GENERAL: The patient is an elderly male, sitting in no acute distress. VITAL SIGNS: His blood pressure is 100/60, heart rate is 68 per minute, breathing at the rate of 16 per minute, temperature is 98.7 degrees Fahrenheit. HEENT: Head is normocephalic, atraumatic. NECK: Supple. There are no carotid bruits. LUNGS: Clear. CARDIOVASCULAR SYSTEM: S1 and S2 are audible. No murmurs. ABDOMEN: Soft and nontender with bowel sounds present. NEUROLOGY: Mental status: The patient is awake, alert, oriented to year, place, person. Speech is fluent. Naming and repetition normal. Memory and cognition are intact. Cranial nerve examination: Pupils are 3 mm, bilaterally reactive to light. Visual candelaria are full. Extraocular movements are intact. There is no facial asymmetry. Palate is upgoing bilaterally and tongue is midline. Motor examination: Tone is normal. Power is 5/5 bilaterally in all extremities. Reflexes are +1 and symmetrical. Plantars downgoing bilaterally. Cerebellar examination: [id number] shows no dysmetria. Sensory examination intact to soft touch, pinprick. Gait is deferred at the moment. LABORATORY DATA: Labs reviewed, shows WBC of 6.6, hemoglobin 10.0, hematocrit 30.3, platelets of 172. Sodium is 135, potassium 5.1, chloride of 107, carbon dioxide content 26, BUN of 26, creatinine 2.5 and glucose of 85. His vitamin B12 level is 380. He had a CT scan of the head done, which shows no acute intracranial pathology. IMPRESSION: Status post syncope. Rule out seizure versus cardiac arrhythmia. RECOMMENDATION: 1. The patient to have an electroencephalogram. 2. The patient to have cardiac monitoring to rule out any cardiac arrhythmias. 3. The patient has no focal neurologic deficits. 4. If the patient's above workup is negative, then he maybe discharged with outpatient followup. Thank you for the opportunity to participate in the care of this patient. Maico Damon MD
--- NOTE | 2017-04-12 13:18 | EEG ---
DATE: ELECTROENCEPHALOGRAM REPORT INTRODUCTION: This is a digitally recorded EEG monitoring using the standard EEG montages. BACKGROUND RHYTHM: The EEG shows a background activity of 9 Hz alpha activity in the parietooccipital region. The EEG activity is bilaterally symmetrical and synchronous. There is attenuation of the background activity on eye opening. No sleep recording was noted. ABNORMAL POTENTIALS: No spike, sharp waves or focal slowing was seen. PHOTIC STIMULATION AND HYPERVENTILATION: Photic stimulation did not reveal any abnormality. Hyperventilation was not performed. IMPRESSION: Normal electroencephalogram. No epileptiform activity is seen in this electroencephalogram recording. Maico Damon MD
--- NOTE | 2017-04-12 15:57 | CP.PCM.PN ---
Subjective - Date & Time of Evaluation Date of Evaluation: 04/12/17 Time of Evaluation: 15:56 - Subjective Subjective: PT SEEN BY NEURO CONSULT TODAY; RECOMMENDS CARDIAC WORK UP TO R/O ARRHYTHMIAS 2/ 2 NEW SYNCOPAL EPISODE, NO H/O KNOWN OF CARDIAC PROBLEMS. EEG DONE AND NEG. ECHO AND CAROTID DUPLEX ORDERED. PT CHANGED TO INPATIENT UNTIL CARDIAC INVOLVEMENT OR CAUSE R/U. PT TO BE SEEN BY DR. FRIAS DURING HER ROUNDS. NO FURTHER ORDERS. Objective - Vital Signs/Intake and Output Vital Signs (last 24 hours): Temp Pulse Resp BP Pulse Ox 98.7 F 68 20 100/60 98 04/12/17 08:45 04/12/17 08:45 04/12/17 08:45 04/12/17 08:45 04/12/17 08:45 Intake and Output: 04/12/17 04/12/17 06:59 18:59 Intake Total 110 Balance 110 - Medications Medications: Current Medications Aspirin (Ecotrin) 81 mg PO DAILY [facility] Last Admin: 04/11/17 15:13 Dose: 81 mg Clopidogrel Bisulfate (Plavix) 75 mg PO DAILY [facility] Ergocalciferol (Drisdol 50,000 Intl Units Cap) 1 cap PO QWK [facility] Ferrous Sulfate (Feosol) 325 mg PO DAILY [facility] Home Med (Memantine Hcl/Donepezil Hcl [Namzaric 28 Mg-10 Mg Capsule]) 1 each PO DAILY [facility] Magnesium Oxide (Mag-Ox) 400 mg PO DAILY [facility] Rvhiz-[id number] Ethyl Esters (Lovaza) 1 gm PO BID [facility] Quetiapine Fumarate (Seroquel) 200 mg PO DAILY [facility] Sodium Bicarbonate (Sodium Bicarbonate Tab) 1,300 mg PO TID [facility] - Labs Labs: 04/12/17 05:00 04/12/17 07:38
[2017-04-12] MEDS: Omega-3-Acid Ethyl Esters 1 GM Cap PO SCH (20:30)
--- NOTE | 2017-04-12 23:16 | CP.PCM.PN ---
<Lorie Bowie - Last Filed: 04/13/17 21:13> Subjective - Date & Time of Evaluation Date of Evaluation: 04/12/17 Time of Evaluation: 09:00 - Subjective Subjective: Chief complaint: cough, cold, congestion 72 yr male w/ history of dementia, BPH, gallbadder disease, HTN , Parkinsons, CKD, schizophrenia. Pt was seen at the bedside on 04/12/17. Poor historian. He states that he smokes 1/2 PPD and refused nicotine patch or smoking cessation assistance. He denies any headache, dizziness, fever, chills, n/v, diarrhea, constipation, urinary changes or distress. Objective - Vital Signs/Intake and Output Vital Signs (last 24 hours): Temp Pulse Resp BP Pulse Ox 98.6 F 76 18 115/57 L 98 04/12/17 15:35 04/12/17 15:35 04/12/17 15:35 04/12/17 15:35 04/12/17 15:35 - Medications Medications: Current Medications Aspirin (Ecotrin) 81 mg PO DAILY [facility] Last Admin: 04/11/17 15:13 Dose: 81 mg Clopidogrel Bisulfate (Plavix) 75 mg PO DAILY [facility] Donepezil HCl (Aricept) 10 mg PO DAILY [facility] Ergocalciferol (Drisdol 50,000 Intl Units Cap) 1 cap PO QWK [facility] Ferrous Sulfate (Feosol) 325 mg PO DAILY [facility] Magnesium Oxide (Mag-Ox) 400 mg PO DAILY [facility] Memantine (Namenda) 10 mg PO BID [facility] [id number]-[id number] Ethyl Esters (Lovaza) 1 gm PO BID [facility] Last Admin: 04/12/17 20:30 Dose: 1 gm Quetiapine Fumarate (Seroquel) 200 mg PO DAILY [facility] Sodium Bicarbonate (Sodium Bicarbonate Tab) 1,300 mg PO TID [facility] Last Admin: 04/12/17 19:12 Dose: 1,300 mg - Labs Labs: 04/12/17 05:00 04/12/17 07:38 - Constitutional Appears: Well, Confused - Head Exam Head Exam: ATRAUMATIC, NORMAL INSPECTION, NORMOCEPHALIC - Eye Exam Eye Exam: EOMI, Normal appearance, PERRL - ENT Exam ENT Exam: Mucous Membranes Moist, Normal Exam - Neck Exam Neck Exam: Full ROM, Normal Inspection. absent: Lymphadenopathy - Respiratory Exam Respiratory Exam: Clear to Ausculation Bilateral, NORMAL BREATHING PATTERN - Cardiovascular Exam Cardiovascular Exam: REGULAR RHYTHM, +S1, +S2. absent: Murmur - GI/Abdominal Exam GI & Abdominal Exam: Soft, Normal Bowel Sounds. absent: Tenderness - Extremities Exam Extremities Exam: Full ROM, Normal Capillary Refill, Normal Inspection. absent : Joint Swelling, Pedal Edema - Back Exam Back Exam: NORMAL INSPECTION - Neurological Exam Neurological Exam: Alert, Awake - Psychiatric Exam Psychiatric exam: Normal Affect, Normal Mood - Skin Skin Exam: Dry, Intact, Normal Color, Warm Assessment and Plan (1) Anemia Status: Acute (2) Iron deficiency Status: Acute (3) Hyperthyroidism Status: Acute (4) Syncope Status: Acute (5) PAUL (acute kidney injury) Status: Acute (6) Electrolyte imbalance Status: Acute - Assessment and Plan (Free Text) Plan: Labs ordered. Consider iron supplementation for anemia. GI/VTE prophlyaxis ordered. Consults: Neuro - Dr. Mary Damon Reviewed: CXR = WNL CT head = no intracranial hemorrhage or mass. atrophy & tiny basal ganglionic lacunes. ECG = BORDERLINE ECG. SB, RSR or QR pattern in V1 suggests R ventricular conduction delay. EEG = WNL <Laura Taylor - Last Filed: 04/14/17 10:49> Objective - Vital Signs/Intake and Output Vital Signs (last 24 hours): Temp Pulse Resp BP Pulse Ox 97.8 F 52 L 20 113/66 100 04/14/17 08:32 04/14/17 08:32 04/14/17 08:32 04/14/17 08:32 04/14/17 08:32 Intake and Output: 04/14/17 04/14/17 06:59 18:59 Intake Total 420 Balance 420 - Medications Medications: Current Medications Aspirin (Ecotrin) 81 mg PO DAILY [facility] Last Admin: 04/14/17 09:52 Dose: 81 mg Clopidogrel Bisulfate (Plavix) 75 mg PO DAILY [facility] Last Admin: 04/14/17 09:53 Dose: 75 mg Donepezil HCl (Aricept) 10 mg PO DAILY [facility] Last Admin: 04/14/17 09:52 Dose: 10 mg Ergocalciferol (Drisdol 50,000 Intl Units Cap) 1 cap PO QWK [facility] Ferrous Sulfate (Feosol) 325 mg PO DAILY [facility] Last Admin: 04/14/17 09:52 Dose: 325 mg Magnesium Oxide (Mag-Ox) 400 mg PO DAILY [facility] Last Admin: 04/14/17 09:50 Dose: 400 mg Memantine (Namenda) 10 mg PO BID [facility] Last Admin: 04/14/17 09:52 Dose: 10 mg Yegcv-3-Jidh Ethyl Esters (Lovaza) 1 gm PO BID [facility] Last Admin: 04/14/17 09:51 Dose: 1 gm Quetiapine Fumarate (Seroquel) 200 mg PO DAILY [facility] Last Admin: 04/14/17 09:53 Dose: 200 mg Sodium Bicarbonate (Sodium Bicarbonate Tab) 1,300 mg PO TID [facility] Last Admin: 04/14/17 09:54 Dose: 1,300 mg - Labs Labs: 04/14/17 08:49 04/14/17 08:49 PT 12.3 SECONDS (9.7-12.2) H 04/14/17 08:49 INR 1.1 04/14/17 08:49 Assessment and Plan - Assessment and Plan (Free Text) Plan: 72 yr male w/ history of dementia, BPH, gallbadder disease, HTN , Parkinsons, CKD, schizophrenia. Pt was seen at the bedside on 04/12/17. Poor historian. He states that he smokes 1/2 PPD and refused nicotine patch or smoking cessation assistance. He denies any headache, dizziness, fever, chills, n/v, diarrhea, constipation, urinary changes or distress. all above noted , agreed all above , neuro is on the case , will f/u
[2017-04-13 02:16] VITALS: RESP 20
[2017-04-13] MEDS: Omega-3-Acid Ethyl Esters 1 GM Cap PO SCH ×2 (11:07→17:42)
[2017-04-13] MEDS: Magnesium Oxide 400 mg Tab UD PO SCH (11:09)
[2017-04-14 08:57] LABS: BASO % 0.7 % (0.0-2.0); EOS # 0.2 K/uL (0.0-0.7); EOS % 5.3 % (0.0-4.0); HEMOGLOBIN 10.6 g/dL (12.0-18.0); LYMPH # 1.2 K/uL (1.0-4.3); LYMPH % 27.7 % (20.0-40.0); MEAN CELL VOLUME 97.9 fL (80.0-94.0); MEAN CORPUSCULAR HGB CONC 32.6 g/dL (33.0-37.0); MEAN PLATELET VOLUME 9.4 fL (7.2-11.7); MONO # 0.3 K/uL (0.0-0.8); MONO % 7.9 % (0.0-10.0); NEUT # 2.5 K/uL (1.8-7.0); NEUT % 58.4 % (50.0-75.0); NRBC % 0.1 % (0.0-2.0); RBC 3.32 Mil/uL (4.40-5.90); RED CELL DISTRIBUTION WIDTH 14.9 % (11.5-14.5); WHITE BLOOD COUNT 4.3 K/uL (4.8-10.8)
[2017-04-14 09:01] LABS: INR 1.1; PROTHROMBIN TIME 12.3 SECONDS (9.7-12.2)
[2017-04-14 09:17] LABS: ALB/GLOB RATIO 1.1 (1.0-2.1); ALBUMIN 3.4 g/dL (3.5-5.0); CALCIUM 8.3 mg/dl (8.6-10.4)
--- NOTE | 2017-04-14 09:20 | CARD ---
APPROVED REPORT EXAM: Two-dimensional and M-mode echocardiogram with Doppler and color Doppler. Other Information Quality : GoodRhythm : INDICATION Syncope M-Mode DIMENSIONS RVDd1.30 (2.1-3.2cm)Left Atrium (MM)3.29 (2.5-4.0cm) IVSd1.14 (0.7-1.1cm)Aortic Root3.64 (2.2-3.7cm) LVDd5.09 (4.0-5.6cm)Aortic Cusp Exc.2.28 (1.5-2.0cm) PWd1.11 (0.7-1.1cm)FS (%) 35 % LVDs3.29 (2.0-3.8cm)LVEF (%)65 (>50%) Mitral Valve MV E Womhwagd33.3cm/sMV A Uxnxyhus43.8cm/sE/A ratio1.5 TDI E/Lateral E'0.0E/Medial E'0.0 Tricuspid Valve TR Peak [id number]/sTR Peak Gr.[id number] LEFT VENTRICLE The left ventricle is normal size. There is mild concentric left ventricular hypertrophy. Left ventricle systolic function is normal. The Ejection Fraction is 65-70%. There is normal LV segmental wall motion. The left ventricular diastolic function is normal. RIGHT VENTRICLE The right ventricle is normal size. There is normal right ventricular wall thickness. The right ventricular systolic function is normal. ATRIA The left atrium size is normal. The right atrium size is normal. The interatrial septum is intact with no evidence for an atrial septal defect. AORTIC VALVE The aortic valve is normal in structure. No aortic regurgitation is present. There is no aortic valvular stenosis. MITRAL VALVE A borderline mitral valve prolapse is present. There is no mitral valve stenosis. There is no mitral valve regurgitation noted. TRICUSPID VALVE The tricuspid valve is normal in structure. There is mild tricuspid regurgitation. Right ventricular systolic pressure is estimated at 30-40 mmHg. There is mild pulmonary hypertension. PULMONIC VALVE The pulmonic valve is not well visualized. There is trace pulmonic valvular regurgitation. GREAT VESSELS The aortic root is normal in size. PERICARDIAL EFFUSION There is no significant pericardial effusion. <Conclusion> Left ventricle systolic function is normal. The Ejection Fraction is 65-70%. Hypertensive heart disease. No aortic regurgitation is present. A borderline mitral valve prolapse is present. There is no mitral valve regurgitation noted. There is mild tricuspid regurgitation. There is mild pulmonary hypertension. There is trace pulmonic valvular regurgitation.
[2017-04-14] MEDS: Magnesium Oxide 400 mg Tab UD PO SCH (09:50)
[2017-04-14] MEDS: Omega-3-Acid Ethyl Esters 1 GM Cap PO SCH ×2 (09:51→17:12)
--- NOTE | 2017-04-14 21:08 | PN ---
DATE: 04/13/2017 SUBJECTIVE: The patient is a 72-year-old male. The patient is seen and examined on the bedside on 04/13/2017. The patient looks comfortable. No headache. No dizziness. No chest pain or shortness of breath. No fever. No chills. No nausea, vomiting, or diarrhea. No abdominal pain. No dysuria. No cough. No sputum production. PHYSICAL EXAMINATION: VITAL SIGNS: Temperature 97.8, pulse 58, blood pressure 102/61, and respiratory rate 20. HEENT: Head is normocephalic and atraumatic. Eyes: PERRLA. Extraocular muscles intact. Conjunctivae clear. Nose patent. Mucous membranes moist. NECK: Supple. No carotid bruits. No JVD or thyromegaly. CHEST: Bilaterally symmetrical. HEART: S1 and S2 positive. LUNGS: Clear to auscultation. ABDOMEN: Soft. Bowel sounds positive. No organomegaly. EXTREMITIES: No edema. No cyanosis. NEUROLOGIC: The patient is awake and alert. Moving all four extremities. No focal deficits. MEDICATIONS: Aricept, vitamin D, Ecotrin, ferrous sulfate, Lovaza, magnesium oxide, Namenda, Plavix, Seroquel, LABORATORY DATA: White blood cells is 6.6, hemoglobin 10.0, hematocrit 38.3, platelets 172,000. Sodium 135, potassium 4.8, BUN 28, creatinine 2.2, glucose 124. ASSESSMENT AND PLAN: Mr. Prashant Myrick is a 72-year-old male with leukopenia, anemia, renal insufficiency, hypocalcemia, came with syncopal attack, seen by neurologist, Dr. Damon. CAT scan of the head was done. Echocardiography done. Doppler of neck bilateral done. Results are pending. History of hypertension, dementia, benign prostatic hyperplasia, hypercholesterolemia, cholelithiasis, Parkinson disease, chronic kidney disease, schizophrenia, status post syncope, rule our seizure versus cardiac arrhythmia. The patient had electrocardiography, cardiac monitoring. The patient had no focal neurological deficit. So, looks like workup is negative as per Neurology. Still awaiting for cardiac evaluation. GI and DVT prophylaxis, repeat labs. We will follow. Laura Taylor MD MTDPhil
--- NOTE | 2017-04-15 05:53 | PN ---
DATE: 04/14/2017 SUBJECTIVE: The patient is a 72-year-old male. The patient is examined at the bedside on 04/14/2017. Patient looks comfortable. No fever. No chills. No nausea, vomiting, or diarrhea. No hematuria or hematochezia. No swelling of the legs. Cough is better. Shortness of breath is better. No more episode of syncopal attack. PHYSICAL EXAMINATION: VITAL SIGNS: Temperature 97.5, pulse 56, blood pressure 101/56, and respiratory rate 20. HEENT: Head: Normocephalic, atraumatic. Eyes: PERRLA. Extraocular movements are intact. Conjunctivae are clear. Nose patent. Mucous membranes are moist. NECK: Supple. No carotid bruit. No JVD or thyromegaly. CHEST: Bilaterally symmetrical. HEART: S1 and S2 positive. LUNGS: Clear to auscultation. ABDOMEN: Soft. Bowel sounds are present. No organomegaly. EXTREMITIES: No edema. No cyanosis. NEUROLOGIC: The patient is awake and alert, moving all 4 extremities with no focal deficit. LABORATORY DATA: White blood cells 4.3, hemoglobin 10.6, hematocrit 32.5, and platelets 176. Sodium 135, potassium 4.5, BUN 28, creatinine 2.2, glucose 126, and calcium 8.3. MEDICATIONS: Aricept, vitamin D, Ecotrin, Feosol, Lovaza, magnesium oxide, Namenda, Plavix, Seroquel, and sodium bicarbonate. ASSESSMENT AND PLAN: Mr. Prashant Myrick is a 72-year-old male with leukopenia, anemia, renal insufficiency, hyperglycemia, hypocalcemia, iron deficiency, and hyperthyroidism, who came with syncopal attack and had carotid Doppler study done - results are pending. He was seen by Dr. Maico Damon the neurologist, had a CAT scan done and electrocardiogram done and noted by me, history of hypertension, dementia, benign prostatic hypertrophy, hypercholesterolemia, gallbladder disease, Parkinson's disease, chronic kidney disease, schizophrenia, status post syncope - rule out seizure versus cardiac arrhythmias - actuary is on the case. Waiting for actuary's input. Gastroenterology and deep venous thrombosis prophylaxis. Repeat labs. We will follow. Laura Taylor MD [facility]
[2017-04-15] MEDS: Magnesium Oxide 400 mg Tab UD PO SCH (09:55)
[2017-04-15] MEDS: Omega-3-Acid Ethyl Esters 1 GM Cap PO SCH ×2 (10:03→18:31)
--- NOTE | 2017-04-15 13:20 | VASCLAB ---
PROCEDURE: HISTORY: SYNCOPAL EPISODE COMPARISON: None available. TECHNIQUE: Grayscale and duplex Doppler evaluation of the cervical carotid and vertebral arteries were performed. The common carotid, carotid bifurcations and cervical Internal Carotid Artery (ICA) and proximal External Carotid Artery (ECA) were evaluated. The vertebral arteries were evaluated for gross patency and flow direction. Report prepared by Liat Mcintyre S FINDINGS: RIGHT CAROTID ARTERIES: 1. Common Carotid Artery: No significant focal plaque formation of the right common carotid artery. Maximum Peak Systolic velocity: 95.7 cm/sec: End-diastolic velocity 19.0 cm/sec. 2. Carotid Bifurcation: No significant focal plaque formation. Maximum Peak Systolic velocity: 84.4 cm/sec: End-diastolic velocity 16.0 cm/sec. 3. Internal Carotid Artery: No significant focal plaque. Plaque description: 3.1. Proximal Segment: Peak systolic velocity 41.1 cm/sec: End-diastolic velocity 8.5 cm/sec - % stenosis 0-15% 3.2. Middle Segment: Peak systolic velocity 61.3 cm/sec: End-diastolic velocity 20.1 cm/sec - % stenosis 0-15% 3.3. Distal Segment: Peak systolic velocity 64.2 cm/sec: End-diastolic velocity 21.3 cm/sec - % stenosis 0-15% 4. External Carotid Artery: No significant focal plaque formation. Peak systolic velocity 87.8 cm/sec 5. ICA/CCA Ratio: 0.8 LEFT CAROTID ARTERIES: 1. Common Carotid Artery: No significant focal plaque formation of the left common carotid artery. Maximum Peak Systolic velocity: 82.3/sec: End-diastolic velocity 16.4sec. 2. Carotid Bifurcation: No significant focal plaque formation. Maximum Peak Systolic velocity: 104.8sec: End-diastolic velocity 17.6/sec. 3. Internal Carotid Artery: No significant focal plaque. Plaque description: 3.1. Proximal Segment: Peak systolic velocity 45.7/sec: End-diastolic velocity 10.9 cm/sec - % stenosis 0-15% 3.2. Middle Segment: Peak systolic velocity 57.0 cm/sec: End-diastolic velocity 18.4 cm/sec - % stenosis 0-15% 3.3. Distal Segment: Peak systolic velocity 55.2 cm/sec: End-diastolic velocity 21.6 cm/sec - % stenosis 0-15% 4. External Carotid Artery: No significant focal plaque formation. Peak systolic velocity 50.3 cm/sec 5. ICA/CCA Ratio: 1.3 VERTEBRAL ARTERIES: 1. Right Vertebral Artery: The right vertebral artery flow direction is antegrade. 2. Left Vertebral Artery: The left vertebral artery flow direction is antegrade. OTHER FINDINGS: 1. Right Brachial Blood pressure: mmHg. 2. Left Brachial Blood pressure: mmHg. IMPRESSION: RIGHT: Duplex scan does not suggest hemodynamically significant stenosis of the right extracranial carotid arteries. LEFT: Duplex scan does not suggest hemodynamically significant stenosis of the left extracranial carotid arteries.
--- NOTE | 2017-04-15 14:05 | CP.PCM.CON ---
<Eleno Helms - Last Filed: 04/15/17 13:44> History of Present Illness - History of Present Illness History of Present Illness: Cardiology Consult Note for Dr. Block CC: dizziness Pt is a 72 yo male with PMH of dementia, BPH, gallladder disease, HTN, Parkinson disease, CKD, and schizophrenia presents to due to syncopal episode that occurred at his assisted. At baseline, patient is confused per assisted staff. Patient is a poor historian. Pt stated that he felt dizzy, weak at knees, and couldnt stand, but could not identify a cause or associated events. Pt could not remember how long he lost conciousness for, but believes it was very brief. Pt denied CP, SOB, n/v/d, abdominal pain, fever, chills, or headache. PMH: dementia, BPH, gallladder disease, HTN, Parkinson disease, CKD, and schizophrenia Allergies: NKDA FHx: unknown SH: Former 1/2 PPD smoker, denied EtOH or illicit drug use Review of Systems - Review of Systems Review of Systems: 12 point ROS reviewed and is negative other than what is stated in HPI. Past Patient History - Infectious Disease Hx of Infectious Diseases: None - Past Medical History & Family History Past Medical History?: Yes - Past Social History Smoking Status: Heavy Smoker > 10 Cigarettes Daily - CARDIAC Hx Hypertension: Yes - NEUROLOGICAL Hx Alzheimer's Disease: Yes Hx Dementia: Yes Hx Parkinson's Disease: Yes - HEENT Hx HEENT Problems: No - RENAL Hx Chronic Kidney Disease: Yes - ENDOCRINE/METABOLIC Hx Endocrine Disorders: No - HEMATOLOGICAL/ONCOLOGICAL Hx Blood Disorders: Yes Hx Hepatitis C: Yes - INTEGUMENTARY Hx Dermatological Problems: No - MUSCULOSKELETAL/RHEUMATOLOGICAL Hx Falls: No - GASTROINTESTINAL Hx Gall Bladder Disease: Yes - GENITOURINARY/GYNECOLOGICAL Hx Genitourinary Disorders: No Hx Prostate Problems: Yes (BPH) - PSYCHIATRIC Hx Schizophrenia: Yes Hx Substance Use: No - SURGICAL HISTORY Hx Surgeries: Yes Other/Comment: bowel Resection - ANESTHESIA Hx Anesthesia: Yes Hx Anesthesia Reactions: No Hx Malignant Hyperthermia: No Meds Allergies/Adverse Reactions: Allergies Allergy/AdvReac Type Severity Reaction Status Date / Time No Known Allergies Allergy Verified 04/11/17 07:15 - Medications Medications: Current Medications Aspirin (Ecotrin) 81 mg PO DAILY [facility] Last Admin: 04/15/17 10:06 Dose: 81 mg Clopidogrel Bisulfate (Plavix) 75 mg PO DAILY [facility] Last Admin: 04/15/17 09:55 Dose: 75 mg Donepezil HCl (Aricept) 10 mg PO DAILY [facility] Last Admin: 04/15/17 09:56 Dose: 10 mg Ergocalciferol (Drisdol 50,000 Intl Units Cap) 1 cap PO QWK [facility] Ferrous Sulfate (Feosol) 325 mg PO DAILY [facility] Last Admin: 04/15/17 09:56 Dose: 325 mg Magnesium Oxide (Mag-Ox) 400 mg PO DAILY [facility] Last Admin: 04/15/17 09:55 Dose: 400 mg Memantine (Namenda) 10 mg PO BID [facility] Last Admin: 04/15/17 09:55 Dose: 10 mg Nrnij-7-Wdmo Ethyl Esters (Lovaza) 1 gm PO BID [facility] Last Admin: 04/15/17 10:03 Dose: 1 gm Quetiapine Fumarate (Seroquel) 200 mg PO DAILY [facility] Last Admin: 04/15/17 09:56 Dose: 200 mg Sodium Bicarbonate (Sodium Bicarbonate Tab) 1,300 mg PO TID [facility] Last Admin: 04/15/17 13:05 Dose: 1,300 mg Physical Exam - Constitutional Appears: No Acute Distress, Confused - Head Exam Head Exam: NORMAL INSPECTION - Eye Exam Eye Exam: Normal appearance - ENT Exam ENT Exam: Normal Exam - Neck Exam Neck exam: Positive for: Normal Inspection - Respiratory Exam Respiratory Exam: Clear to Auscultation Bilateral. absent: Accessory Muscle Use , Rales, Rhonchi, Wheezes, Respiratory Distress - Cardiovascular Exam Cardiovascular Exam: RRR, +S1, +S2. absent: Clicks, Gallop, Rubs, Systolic Murmur - GI/Abdominal Exam GI & Abdominal Exam: Soft. absent: Distended, Guarding, Rebound, Tenderness - Extremities Exam Extremities exam: Positive for: normal inspection - Neurological Exam Neurological exam: Alert, Oriented x3 - Psychiatric Exam Psychiatric exam: Normal Mood - Skin Skin Exam: Dry, Intact, Warm Results - Vital Signs Recent Vital Signs: Last Vital Signs Temp 98.0 F 04/15/17 09:38 Pulse 65 04/15/17 09:38 Resp 20 04/15/17 09:38 BP 103/65 04/15/17 09:38 Pulse Ox 100 04/15/17 09:38 - Labs Result Diagrams: 04/14/17 08:49 04/14/17 08:49 Assessment & Plan - Assessment and Plan (Free Text) Assessment: 72 yo male with PMH of dementia, BPH, gallladder disease, HTN, Parkinson disease , CKD, and schizophrenia presents to s/p syncopal episode. Plan: 1. Syncope - Stress test tomorrow in AM - Will r/o arrthymia vs ischemic cardiac event - Cont cardiac monitoring, ASA - Echo showed LVEF 65-70% - EKG showed sinus bradycardia - Carotid doppler negative - Chol 172, LDL 68, HDL 59 - HgbA1c 5.3% - Neuro following - Medical management by primary. Pt seen and discussed in detail with Dr. Block. Wiley Helms, PGY1 <Mata Block - Last Filed: 04/15/17 14:31> Meds - Medications Medications: Current Medications Aspirin (Ecotrin) 81 mg PO DAILY [facility] Last Admin: 04/15/17 10:06 Dose: 81 mg Clopidogrel Bisulfate (Plavix) 75 mg PO DAILY [facility] Last Admin: 04/15/17 09:55 Dose: 75 mg Donepezil HCl (Aricept) 10 mg PO DAILY [facility] Last Admin: 04/15/17 09:56 Dose: 10 mg Ergocalciferol (Drisdol 50,000 Intl Units Cap) 1 cap PO QWK [facility] Ferrous Sulfate (Feosol) 325 mg PO DAILY [facility] Last Admin: 04/15/17 09:56 Dose: 325 mg Magnesium Oxide (Mag-Ox) 400 mg PO DAILY [facility] Last Admin: 04/15/17 09:55 Dose: 400 mg Memantine (Namenda) 10 mg PO BID [facility] Last Admin: 04/15/17 09:55 Dose: 10 mg Yksgm-0-Sxpp Ethyl Esters (Lovaza) 1 gm PO BID [facility] Last Admin: 04/15/17 10:03 Dose: 1 gm Quetiapine Fumarate (Seroquel) 200 mg PO DAILY [facility] Last Admin: 04/15/17 09:56 Dose: 200 mg Sodium Bicarbonate (Sodium Bicarbonate Tab) 1,300 mg PO TID [facility] Last Admin: 04/15/17 13:05 Dose: 1,300 mg Results - Vital Signs Recent Vital Signs: Last Vital Signs Temp 98.0 F 04/15/17 09:38 Pulse 65 04/15/17 09:38 Resp 20 04/15/17 09:38 BP 103/65 04/15/17 09:38 Pulse Ox 100 04/15/17 09:38 - Labs Result Diagrams: 04/14/17 08:49 04/14/17 08:49 Attending/Attestation - Attestation I have personally seen and examined this patient.: Yes I have fully participated in the care of the patient.: Yes I have reviewed all pertinent clinical information: Yes Notes (Text): 04/15/17 14:30 72-year-old [facility] complains of dizziness and episode of near syncope. Patient moderate risk for CAD EKG nonspecific enzymes negative 1 will need further risk stratification with nuclear stress test which will be arranged for in the morning keep patient n.p.o. past midnight.
--- NOTE | 2017-04-16 01:35 | PN ---
DATE: SUBJECTIVE: The patient is 72-year-old male. The patient is seen and examined at the bedside. Looking comfortable. No nausea, vomiting or diarrhea. No fever, no chills, no headache, no dizziness. No hematuria, no hematochezia. OBJECTIVE: VITAL SIGNS: Temperature 98.0, pulse 54, blood pressure 94/57, respiratory rate 20. HEENT: Head; normocephalic, atraumatic. Eyes; PERRLA, extraocular movements are intact, conjunctivae are clear. Nose patent. Mucous membranes are moist. NECK: Supple. No carotid bruit. No JVD or thyromegaly. CHEST: Bilaterally symmetrical. HEART: S1 and S2 positive. LUNGS: Clear to auscultation. ABDOMEN: Soft. Bowel sounds are present. No organomegaly. EXTREMITIES: No edema. No cyanosis. NEUROLOGIC: The patient is awake and alert, moving all 4 extremities with no focal deficit. MEDICATIONS: Aricept, vitamin D, Ecotrin, Feosol, Lovaza, magnesium oxide, Namenda, Plavix, Seroquel, sodium bicarbonate. LABORATORY DATA: White blood cells 4.3, hemoglobin 10.6, hematocrit 32.5, platelets 176. Sodium 135, potassium 4.8, BUN 28, creatinine 2.2, glucose 124. ASSESSMENT AND PLAN: Mr. Prashant Myrick is a 72-year-old male with leukopenia, anemia, renal insufficiency, hypocalcemia, hyperglycemia, history of dementia, benign prostatic hypertrophy, gallbladder disease, hypertension, Parkinson's disease, chronic kidney disease, schizophrenia, former smoker, came with syncope. Stress test tomorrow a.m. as per Dr. Mata Block to rule out arrhythmia versus ischemic cardiac event. Continue aspirin, cardiac monitoring. Echo shows 65%-70% ejection fraction. EKG shows sinus bradycardia. Carotid Doppler, negative. The patient is a resident of the care home, was transferred, for complaining of dizziness and episode of asthma, also near syncope. The patient has morbid risk for chronic kidney disease. EKG, non-specific. Enzymes are negative x1. We will need further risk stratification with nuclear stress test, which will be arranged for morning, keeping patient n.p.o. last night as per Dr. Mata Block. Gastrointestinal and deep venous thrombosis prophylaxes, repeat labs. Laura Taylor MD [facility] # [id number]
[2017-04-16] MEDS: Magnesium Oxide 400 mg Tab UD PO SCH (09:09)
[2017-04-16] MEDS: Omega-3-Acid Ethyl Esters 1 GM Cap PO SCH ×2 (09:09→18:24)
--- NOTE | 2017-04-16 09:38 | CP.PCM.PN ---
Subjective - Date & Time of Evaluation Date of Evaluation: 04/16/17 Time of Evaluation: 09:34 - Subjective Subjective: Cardiology Progress Note for Dr. Block Pt seen and examined at bedside. No acute overnight events. Pt for stress test today. Pt denies CP, SOB, n/v/d, fever, chills, [place], or dizziness. Objective - Vital Signs/Intake and Output Vital Signs (last 24 hours): Temp Pulse Resp BP Pulse Ox 97.6 F 56 L 20 108/66 100 04/16/17 08:00 04/16/17 08:00 04/16/17 08:00 04/16/17 08:00 04/16/17 08:00 Intake and Output: 04/16/17 04/16/17 06:59 18:59 Intake Total 350 Balance 350 - Medications Medications: Current Medications Aspirin (Ecotrin) 81 mg PO DAILY [facility] Last Admin: 04/15/17 10:06 Dose: 81 mg Clopidogrel Bisulfate (Plavix) 75 mg PO DAILY [facility] Last Admin: 04/15/17 09:55 Dose: 75 mg Donepezil HCl (Aricept) 10 mg PO DAILY [facility] Last Admin: 04/15/17 09:56 Dose: 10 mg Ergocalciferol (Drisdol 50,000 Intl Units Cap) 1 cap PO QWK [facility] Ferrous Sulfate (Feosol) 325 mg PO DAILY [facility] Last Admin: 04/15/17 09:56 Dose: 325 mg Magnesium Oxide (Mag-Ox) 400 mg PO DAILY [facility] Last Admin: 04/15/17 09:55 Dose: 400 mg Memantine (Namenda) 10 mg PO BID [facility] Last Admin: 04/15/17 18:31 Dose: 10 mg Aikaw-8-Qqbo Ethyl Esters (Lovaza) 1 gm PO BID [facility] Last Admin: 04/15/17 18:31 Dose: 1 gm Quetiapine Fumarate (Seroquel) 200 mg PO DAILY [facility] Last Admin: 04/15/17 09:56 Dose: 200 mg Sodium Bicarbonate (Sodium Bicarbonate Tab) 1,300 mg PO TID [facility] Last Admin: 04/15/17 18:31 Dose: 1,300 mg - Labs Labs: 04/14/17 08:49 04/14/17 08:49 PT 12.3 SECONDS (9.7-12.2) H 04/14/17 08:49 INR 1.1 04/14/17 08:49 - Constitutional Appears: No Acute Distress - Eye Exam Eye Exam: Normal appearance - ENT Exam ENT Exam: Normal Exam - Neck Exam Neck Exam: Normal Inspection - Respiratory Exam Respiratory Exam: Clear to Ausculation Bilateral. absent: Accessory Muscle Use , Rales, Rhonchi, Wheezes, Respiratory Distress - Cardiovascular Exam Cardiovascular Exam: RRR, +S1, +S2. absent: Gallop, Rubs, Murmur - GI/Abdominal Exam GI & Abdominal Exam: Soft. absent: Distended, Guarding, Tenderness, Rebound - Extremities Exam Extremities Exam: Normal Inspection - Back Exam Back Exam: NORMAL INSPECTION - Neurological Exam Neurological Exam: Alert, Awake, Oriented x3 - Psychiatric Exam Psychiatric exam: Normal Affect, Normal Mood - Skin Skin Exam: Dry, Intact, Normal Color, Warm Assessment and Plan - Assessment and Plan (Free Text) Assessment: 72 yo male with PMH of dementia, BPH, gallladder disease, HTN, Parkinson disease , CKD, and schizophrenia presents to s/p syncopal episode. Plan: 1. Syncope - Follow up stress test results - Will r/o arrthymia vs ischemic cardiac event - Cont cardiac monitoring, ASA - Echo showed LVEF 65-70% - EKG showed sinus bradycardia - Carotid doppler negative - Chol 172, LDL 68, HDL 59 - HgbA1c 5.3% - ASCVD 10 yr risk 10.4% - Neuro following - Medical management by primary Pt seen and discussed in detail with Dr. Block. Wiley Helms, PGY1
--- NOTE | 2017-04-17 01:11 | PN ---
DATE: SUBJECTIVE: The patient is a 72-year-old male. The patient is seen and examined on the bedside, looking comfortable. No nausea or vomiting. No hematuria, no hematochezia. No swelling of the legs. No chest pain, no palpitation. No headache, no dizziness. Went for stress test today. No fever, no chills. PHYSICAL EXAMINATION: VITAL SIGNS: Temperature is 97.6, pulse 56, respiratory rate 20, blood pressure 120/80 , pulse oximetry 100. HEENT: Head normocephalic, atraumatic. Eyes, PERRLA. Extraocular muscles intact. Conjunctivae clear. Nose patent. NECK: Supple. No carotid bruit, no thyromegaly. CHEST: Bilaterally symmetrical. HEART: S1 and S2 positive. LUNGS: Clear to auscultation. ABDOMEN: Soft. Bowel sounds present. No organomegaly. EXTREMITIES: No edema, no cyanosis. NEUROLOGIC: The patient is awake and alert. Moving all four extremities with no focal deficit. MEDICATIONS: Aspirin, Plavix, Aricept, Drisdol, Feosol, magnesium, Namenda, Lovaza, Seroquel, sodium bicarbonate. LABORATORY DATA: White blood cells 4.3, hemoglobin 10.6, hematocrit 32.5, platelets 176. Sodium 135, potassium 4.8, BUN noted , creatinine 2.2, glucose 124. ASSESSMENT AND PLAN: Mr. Prashant Myrick is a 72-year-old male with leukopenia, anemia, renal insufficiency, hyperglycemia, came with chest pain, went for stress test today, seen by the ham sawyer, history of dementia, benign prostatic hypertrophy, Parkinson disease, chronic kidney disease, schizophrenia, status post syncopal attack. Stress test done, the results are pending. Seen by neurologist also, appreciated neurologist and ham sawyer input. Gastrointestinal and deep venous thrombosis prophylaxis. Repeat labs. We will follow. Laura Taylor MD [facility]
--- NOTE | 2017-04-17 07:27 | CP.PCM.PN ---
Subjective - Date & Time of Evaluation Date of Evaluation: 04/17/17 Time of Evaluation: 07:25 - Subjective Subjective: Cardiology Progress Note for Dr. Block Pt seen and examined at bedside. Pt resting comfortably in bed. No acute overnight events. Pt denies CP, SOB, palpitations, n/v/d, abdominal pain, fever , chills, headache, or dizziness. Objective - Vital Signs/Intake and Output Vital Signs (last 24 hours): Temp Pulse Resp BP Pulse Ox 98.1 F 54 L 20 101/60 98 04/17/17 00:35 04/17/17 04:00 04/17/17 00:35 04/17/17 00:35 04/17/17 00:35 Intake and Output: 04/17/17 04/17/17 06:59 18:59 Intake Total 350 Balance 350 - Medications Medications: Current Medications Aspirin (Ecotrin) 81 mg PO DAILY [facility] Last Admin: 04/16/17 13:54 Dose: 81 mg Clopidogrel Bisulfate (Plavix) 75 mg PO DAILY [facility] Last Admin: 04/16/17 13:54 Dose: 75 mg Donepezil HCl (Aricept) 10 mg PO DAILY [facility] Last Admin: 04/16/17 09:08 Dose: Not Given Ergocalciferol (Drisdol 50,000 Intl Units Cap) 1 cap PO QWK [facility] Ferrous Sulfate (Feosol) 325 mg PO DAILY [facility] Last Admin: 04/16/17 13:09 Dose: Not Given Magnesium Oxide (Mag-Ox) 400 mg PO DAILY [facility] Last Admin: 04/16/17 09:09 Dose: Not Given Memantine (Namenda) 10 mg PO BID [facility] Last Admin: 04/16/17 18:23 Dose: 10 mg Tptwv-1-Ymus Ethyl Esters (Lovaza) 1 gm PO BID [facility] Last Admin: 04/16/17 18:24 Dose: 1 gm Quetiapine Fumarate (Seroquel) 200 mg PO DAILY [facility] Last Admin: 04/16/17 14:00 Dose: 200 mg Sodium Bicarbonate (Sodium Bicarbonate Tab) 1,300 mg PO TID [facility] Last Admin: 04/16/17 18:23 Dose: 1,300 mg - Labs Labs: 04/14/17 08:49 04/14/17 08:49 PT 12.3 SECONDS (9.7-12.2) H 04/14/17 08:49 INR 1.1 04/14/17 08:49 - Constitutional Appears: No Acute Distress - Head Exam Head Exam: NORMAL INSPECTION - Eye Exam Eye Exam: Normal appearance - ENT Exam ENT Exam: Normal Exam - Neck Exam Neck Exam: Normal Inspection - Respiratory Exam Respiratory Exam: Clear to Ausculation Bilateral. absent: Accessory Muscle Use , Rales, Rhonchi, Wheezes, Respiratory Distress - Cardiovascular Exam Cardiovascular Exam: RRR, +S1, +S2. absent: Gallop, Rubs, Murmur - GI/Abdominal Exam GI & Abdominal Exam: Soft. absent: Distended, Guarding, Tenderness, Rebound - Extremities Exam Extremities Exam: Normal Inspection - Back Exam Back Exam: NORMAL INSPECTION - Neurological Exam Neurological Exam: Alert, Awake, Oriented x3 - Psychiatric Exam Psychiatric exam: Normal Affect, Normal Mood - Skin Skin Exam: Dry, Intact, Normal Color, Warm Assessment and Plan - Assessment and Plan (Free Text) Assessment: 72 yo male with PMH of dementia, BPH, gallladder disease, HTN, Parkinson disease , CKD, and schizophrenia presents to s/p syncopal episode. Plan: 1. Syncope - Nuclear stress test unremarkable - Continue ASA 81 - Start Toprol XL 12.5 mg PO daily - Start Lipitor 40 mg PO daily - Echo showed LVEF 65-70% - EKG showed sinus bradycardia - Carotid doppler negative - Chol 172, LDL 68, HDL 59 - HgbA1c 5.3% - ASCVD 10 yr risk 10.4% - Neuro following - Medical management by primary Dispo: Pt is clear from cardiac standpoint. Toprol XL and Lipitor should be added to patient's home medications. At this point, we will sign off. Thank you for allowing us to participate in the care of this patient. Please reconsult as needed. Pt seen and discussed in detail with Dr. Block. Wiley Helms, PGY1
[2017-04-17] MEDS: Magnesium Oxide 400 mg Tab UD PO SCH (09:15)
[2017-04-17] MEDS: Omega-3-Acid Ethyl Esters 1 GM Cap PO SCH (09:16)
[2017-04-17] MEDS ORDERED: Metoprolol Succinate 12.5 mg XL PO SCH (10:30)
[2017-04-17 16:18] VITALS: BP 110/62; PULSE 80; TEMP 98.1; O2SAT 98
--- NOTE | 2017-04-18 09:12 | CARD ---
APPROVED REPORT Protocol: LEXISCAN Test Type: LEXISCAN STRESS Test Indications: SYNCOPE Target HR: 122 bpm Resting ECG: normal Resting Heart Rate: 53 bpm Resting Blood Pressure: 134/80mmHg submaximum (85%): 104 bpm TEST SUMMARY PREINFSNHYPERV.34:[id number]/80.0. INFUSIONDOSE 100:300.00.01.052/.0. [id number]/80.0. PROCEDURE Pharmacologic stress testing was performed using 0.4mg per 5ml of regadenoson given intravenously over 7-10 seconds. POST EXERCISE Reason for Termination: Protocol Completed Target HR: No Max HR: 52 bpm 70% of Maximum Predicted HR: 122 bpm Exercise duration: 00:30 min:sec, 0 Stage Exercise capacity: 1.0METs Max Blood Pressure: 134/80mmHg Blood Pressure response to exercise: N/A Heart Rate response to exercise: N/A Chest Pain: No, none Angina index: 0 Arrhythmia: No, none ST Change: No, none Deviation: 0 mm EXAM: Myocardial Perfusion STRESS/REST Imaging Protocol The imaging protocol used to acquire images was Stress Tc-99m/rest Tc-99m 1 day Rest Spect myocardial perfusion imaging was performed in supine position 45 minutes following the injection of 30.0 mCi of Tc-99 Myoview. Gated Stress Spect was performed 45 minutes after intravenous 12.5 mCi Tc-99 Myoview injection. The images were gated to evaluate regional wall motion and calculate ventricular ejection fraction.Images were reconstructed using backfilter projection method in short horizontal and verticle long axis. Spect slices were generated. RESTING DATA [id number]/min ESV35.00mlMyocardial Mndm848.00g Av. Heart Rate54.00bpm EF70.00% STRESS DATA CCQ500.80gsRB8.80L/min ESV36.00mlMyocardial Ruug681.00g EF70.00% Regional WT score at stress:0.00 Regional WM score at stress:0.00 Summed WT score at stress:5.00 Av. Heart Rate57.00bpmSummed WM score at stress:0.00 Study quality was fair. Left Ventricular size was Normal at Rest and Stress. LV Perfusion 1 Perfusion Defect Location: apical anterior Perfusion Defect Size: Small (1-2 segments) Perfusion Defect Severity: Mild Type of Perfusion Defect: Mixed TCD/TID: No LV Perf. Quant 17 Seg. SSS0.00 17 Seg. SRS0.00 17 Seg. SDS0.00 Stress Defect Extent (% LAD)0.00Rest Defect Extent (% LAD)0.00Rev. Defect Extent (% LAD)0.00 Stress Defect Extent (% LCX)10.00Rest Defect Extent (% LCX)0.00Rev. Defect Extent (% LCX)0.00 Stress Defect Extent (% RCA)0.00Rest Defect Extent (% RCA)0.00Rev. Defect Extent (% RCA)0.00 Stress Defect Extent (% AIMEE)1.70Rest Defect Extent (% AIMEE)0.00Rev. Defect Extent (% AIMEE)0.00 IMPRESSION Abnormal Myocardial Perfusion exercise stress study Metabolism/Perfusion Reversible/Irreversible: Small sized mild intensity anteroapical defect partially reversible Conclusion 1. - Low probability for significant obstructive CAD 2. - Normal LVEF
[2017-04-18] MEDS ORDERED: Ergocalciferol 50,000 Intl Units Cap PO SCH (10:00)
--- NOTE | 2017-04-18 21:25 | DS ---
CHIEF COMPLAINT: Feeling dizzy. HISTORY OF PRESENT ILLNESS: Mr. Prashant Myrick is [id number] male, very poor historian, who reported that he had syncopal attack at the [facility], where he lives. According to [facility] people, patient at baseline is confused. The patient said that he feels little dizzy and got wheezing and is not sure about his passing out. Patient denies any injury. No shortness of breath. No headache, no dizziness. Patient was admitted in [facility]. CAT scan of the head was done. Chest x-ray and electrocardiography done. Bilateral carotid Doppler study done. Myocardial perfusion scan, nuclear medicine done. Seen by Dr. Mata Block, manager resort and Dr. Maico Damon, neurologist. The manager resort cleared the patient for discharge. Stress test was negative. Neurologist cleared the patient for discharge. Patient discharged back to [facility]. Followup appointment and card given. PAST MEDICAL HISTORY: Dementia, BPH, gallbladder disease, hypertension, Parkinson disease, chronic kidney disease and schizophrenia. FAMILY HISTORY: Unknown. HABITS: No smoking. No drugs. No ethanol. ALLERGIES: DARIELA IS NOT ALLERGIC TO ANY MEDICATIONS. REVIEW OF SYSTEMS: Patient is seen and examined at the bedside. Looking comfortable. No nausea, vomiting, diarrhea. No hematuria. No headache. No dizziness. No chest pain. No palpitation. Patient is a very poor historian. PHYSICAL EXAMINATION: VITAL SIGNS: Temperature 98.1, pulse 80, blood pressure is 110/52, respiratory rate 20. HEENT: Head is normocephalic, atraumatic. Eyes PERRLA. Extraocular muscles intact. Conjunctivae clear. Nose patent. Mucous membranes moist. NECK: Supple. No carotid bruit. No JVD or thyromegaly. CHEST: Bilaterally symmetrical. HEART: S1 and S2 positive. LUNGS: Clear to auscultation. ABDOMEN: Soft. Bowel sounds are present. No organomegaly. EXTREMITIES: No edema. No cyanosis. NEUROLOGIC: The patient is awake and alert. Moving all 4 extremities. No focal deficit. MEDICATIONS: Medications given in the hospital: Aricept, vitamin D, Ecotrin,iron, Lovaza, magnesium oxide, Namenda, Plavix, Seroquel, sodium bicarbonate, and metoprolol. LABORATORY DATA: White blood cells 4.3, hemoglobin 10.6, hematocrit 32.5,and platelets 176. Sodium 135, potassium 4.5, BUN 28, creatinine 2.2, glucose 130. ASSESSMENT AND PLAN: Mr. Prashant Myrick is a 72-year-old male with leukopenia, anemia, renal insufficiency, hyperglycemia, hypocalcemia, iron deficiency, who came with dementia, benign prostatic hyperplasia, gallbladder disease, hypertension, Parkinson disease, chronic kidney disease, schizophrenia, came with syncopal attack. Nuclear stress test is unremarkable as per Cardiology. Continue aspirin, Toprol-XL 12.5, Lipitor 40. Echo shows left ventricular ejection fraction 65% to 70%. Carotid Doppler is negative. Hemoglobin A1c 5.3. No diabetes. Water Quality Tester cleared the patient for discharge as per Dr. Mata Block. Dr. Maico Damon also cleared the patient to discharge home. Prescription for the medications given. We will follow up with doctor. Patient went back to [facility]. Laura Taylor MD
== END 2017-04-17 16:37 | disposition home or self-care (01) | DRG 312 ==
LOC: C.ER 07:00 → C.9E 08:32 → C.6T 08:50 → OBSVTOIN 04-12 15:55
PROVIDERS: ADMIT Internal Medicine; ATTEND Internal Medicine
DX: R55 Syncope and collapse (principal); N17.9 Acute kidney failure, unspecified; G20 Parkinson's disease; E83.51 Hypocalcemia; G30.9 Alzheimer's disease, unspecified; F20.9 Schizophrenia, unspecified; F02.80 Dementia in other diseases classified elsewhere, unspecified severity, without behavioral disturbance, psychotic disturbance, mood disturbance, and anxiety; I12.9 Hypertensive chronic kidney disease with stage 1 through stage 4 chronic kidney disease, or unspecified chronic kidney disease; N18.9 Chronic kidney disease, unspecified; D72.819 Decreased white blood cell count, unspecified; E78.00 Pure hypercholesterolemia, unspecified; D50.9 Iron deficiency anemia, unspecified; R73.9 Hyperglycemia, unspecified; R00.1 Bradycardia, unspecified